=== PATIENT | female | born 1935 | race Caucasian/White ===

== ENCOUNTER 2019-08-15 07:39 | Outpatient (CLI) | payer MEDICARE, OTHER, SELFPAY ==
--- NOTE | 2019-08-15 08:18 | CT_ITS ---
WS: [id number] CT CHEST WITH INTRAVENOUS CONTRAST HISTORY: F/U PULMONARY NODULES TECHNIQUE: Contiguous 5 mm axial imaging performed on the thorax. Coronal and sagittal reformats are submitted. All CT scans at [facility] use at least one of these dose optimization techniq ues: automated exposure control; mA and/or kV adjustment per patient size (includes targeted exams wh ere dose is matched to clinical indication); or iterative reconstruction. CONTRAST: Visipaque 320; 75 mL IV. DLP: 476.15 mGycm COMPARISON: 08/14/2018, 12/09/2017 and 11/28/2016. Lungs and central airway: Mild pulmonary hyperexpansion. Benign granuloma RIGHT upper lobe. 3 mm stab le nodule is noncalcified LEFT lower lobe, image 29 of series 3. Mild interstitial thickening in the periphery of the LEFT lower lobe. Small stable nodules along the RIGHT diaphragmatic surface. No new pulmonary nodules or pneumonia. Pleura: Mild nodularity is stable along the RIGHT diaphragmatic surface. Heart and pericardium: Mild increased pericardial fat. Mediastinum and wu: Small stable benign appearing mediastinal and hilar lymph nodes. Vessels: Atherosclerosis of aorta. No aneurysm. Moderate atherosclerosis in the [place] coronary arter ies. Pulmonary artery size is normal. Chest wall and lower neck: No soft tissue masses. Upper abdomen: Small hiatal hernia. Osseous structures: Mild increase in thoracic kyphosis. Prior vertebroplasty at L1. There is diffuse osteopenia. Mild anterior wedging of T11. CT/CT chest w con* [id number] IMPRESSION: 1. Long-term stability of chronic emphysema and LEFT lower lobe pulmonary nodu les. Long-term stability of the nodules along the RIGHT diaphragmatic surface. No additional follow-up necessary. 2. Atherosclerosis aorta 3. Small hiatal hernia. 4. Moderate coronary artery atherosclerosis.
[2019-08-15] MEDS: iodixanol 320 mg/mL 100mL Btl IV (08:44)
== END 2019-08-15 07:40 | disposition home or self-care (01) ==
LOC: RADWPI 07:45
PROVIDERS: Family Provider Physician Assistant; PCP Physician Assistant; Visit Provider Physician Assistant
DX: R91.8 Other nonspecific abnormal finding of lung field (principal); J43.9 Emphysema, unspecified; I70.0 Atherosclerosis of aorta; K44.9 Diaphragmatic hernia without obstruction or gangrene; I25.10 Atherosclerotic heart disease of native coronary artery without angina pectoris
CPT/HCPCS: 71260; Q9967

== ENCOUNTER 2024-04-02 09:48 | Inpatient (IN) | payer MEDICARE, OTHER, SELFPAY ==
[2024-04-02] VITALS (19 sets, daily range): BP systolic 102–135; BP diastolic 52–78; PULSE 90–120; RESP 16–22; TEMP 36.2–37.8; O2SAT 91–100; BMI 20.1
--- NOTE | 2024-04-02 | SC_ITS ---
WS: [id number] C-ARM RADIOGRAPHS RIGHT FEMUR; 6 IMAGES HISTORY: RT TROCH NAIL COMPARISON: None available. Lung intramedullary femoral ney has been placed through the mid femoral diaphyseal fracture which has been reduced and now in good position and alignment. Satisfactory placement of the proximal and dist al locking screws. SC/C-arm FL for CVA [id number] IMPRESSION: Status post ORIF RIGHT femoral diaphyseal fracture now in excellent position an d alignment compared to the preoperative exam.
--- NOTE | 2024-04-02 09:55 | XRR_ITS ---
PROCEDURE INFORMATION: Exam: XR Right Knee Exam date and time: 04/02/2024 10:22 AM Age: 88 years old Clinical indication: Injury or trauma; Fall; Blunt trauma; Knee; Right; Additional info: Fall/trauma TECHNIQUE: Imaging protocol: Radiologic exam of the right knee. Views: 3 views. COMPARISON: CR XR femur RT min 2V* [id number] 04/02/2024 10:18 AM FINDINGS: Bones/joints: Again noted is an angulated and displaced fracture of the mid shaft of the right femur. There is normal anatomic alignment of the right knee. No evidence of a right knee fracture. The lateral view submitted is suboptimal for evaluating for a right knee effusion. Soft tissues: Normal. XR/XR knee RT 3V* [id number] IMPRESSION: 1. Intact right knee. 2. Angulated and displaced fracture mid shaft right femur.
--- NOTE | 2024-04-02 09:55 | XRR_ITS ---
PROCEDURE INFORMATION: Exam: XR Right Hip Exam date and time: 04/02/2024 10:14 AM Age: 88 years old Clinical indication: Injury or trauma; Fall; Blunt trauma (contusions or hematomas); Right; Hip; Additional info: Fall/trauma TECHNIQUE: Imaging protocol: Radiologic exam of the right hip. Views: 1 view hip with pelvis when performed. COMPARISON: No relevant prior studies available. FINDINGS: Bones/joints: There is normal anatomic alignment of the right hip. No evidence of a fracture or destructive bone lesion. Minor osteoarthritic changes of the right hip. The iliac bones and pubic rami appear intact. The sacrum appears intact. There are chronic degenerative changes of the lower lumbar spine. Soft tissues: Unremarkable. XR/XR hip RT 2-3V wo/w pel* [id number] IMPRESSION: Minor osteoarthritic changes of the right hip, otherwise no evidence of a right hip fracture.
--- NOTE | 2024-04-02 09:55 | XRR_ITS ---
PROCEDURE INFORMATION: Exam: XR Chest Exam date and time: 04/02/2024 10:13 AM Age: 88 years old Clinical indication: Injury or trauma; Fall; Blunt trauma (contusions or hematomas); Additional info: Fall/admit TECHNIQUE: Imaging protocol: Radiologic exam of the chest. Views: 1 view. COMPARISON: CT chest w con* [id number] 08/15/2019 8:35 AM FINDINGS: Lungs: The chest is hypoventilatory. No acute infiltrates identified. Subtle cephalization of pulmonary blood flow suggesting a component of pulmonary venous hypertension. No pulmonary edema at this time. Pleural spaces: Unremarkable. No pleural effusion. No pneumothorax. Heart/Mediastinum: Mild stable cardiomegaly. Bones/joints: Stable appearing L1 vertebroplasty. XR/XR chest 1V portable [id number] IMPRESSION: Subtle pulmonary venous hypertension without pulmonary edema and mild stable cardiomegaly.
--- NOTE | 2024-04-02 09:55 | XRR_ITS ---
PROCEDURE INFORMATION: Exam: XR Right Femur Exam date and time: 04/02/2024 10:18 AM Age: 88 years old Clinical indication: Injury or trauma; Fall; Blunt trauma; Thigh or upper leg; Right; Additional info: Fall/deformity TECHNIQUE: Imaging protocol: Radiologic exam of the right femur. Views: 2 views. COMPARISON: No relevant prior studies available. FINDINGS: Bones/joints: There is an oblique fracture through the mid shaft of the right femur. There is approximately 4 cm of bone override at the fracture site and posterolateral angulation of the distal fracture fragment relative to the proximal fracture fragment. The right hip and right-sided pubic rami are intact. Soft tissues: No radiopaque foreign body or gas in the soft tissues. XR/XR femur RT min 2V* [id number] IMPRESSION: Displaced fracture mid shaft right femur.
--- NOTE | 2024-04-02 09:55 | W.ED.LOWEXIN ---
Documented by User: BOBBY Hart 04/02/24 13:55 HPI - Extremity Injury (Lower) General: Chief Complaint: Extremity Injury, Lower Stated Complaint: fall, right leg pain Time Seen by Provider: 04/02/24 09:50 Source: patient and EMS Mode of arrival: EMS Limitations: no limitations History of Present Illness: Patient is a very nice 88-year-old female presents to ED today via EMS for evaluation of a right lower leg injury/obvious fracture. Patient states she was standing in her yard this morning feeding the birds and squirrels when she believes she slipped on the wet grass. EMS reports obvious deformity to her right femur upon arrival. They were able to get her up and splinted. She denies striking her head or LOC. She is not complaining of any neck or back pain. Her only pain at this time is her right femur. Patient is not on anticoagulation. She reports PMH of asthma and hypertension. She was given 100mcg fentanyl in route. MD complaint: thigh injury Onset (ago): hour(s) Injury: Right: thigh Place: home Severity: severe Relieving factors: immobilization Exacerbating factors: movement and palpation Context: fall Associated symptoms: Reports inability to bear weight Other symptoms: none Related Data Home Medications Medication Instructions Recorded Confirmed alendronate 70 mg tablet 70 mg PO Q7D 04/02/24 04/02/24 amlodipine 2.5 mg tablet 2.5 mg PO DAILY 04/02/24 04/02/24 atorvastatin 20 mg tablet 20 mg PO DAILY 04/02/24 04/02/24 ipratropium 20 mcg-albuterol 100 1 puff inhalation DAILY 04/02/24 04/02/24 mcg/actuation mist for inhalation (Combivent Respimat) lisinopril 5 mg tablet 5 mg PO DAILY 04/02/24 04/02/24 metformin 500 mg tablet 500 mg PO DAILY 04/02/24 04/02/24 Allergies Allergy/AdvReac Type Severity Reaction Status Date / Time codeine Allergy Unknown Verified 04/02/24 10:03 Review of Systems Card: Denies: chest pain, palpitations, irregular heart rhythm, edema, lightheadedness, syncope or pre-syncope Resp: Denies: dyspnea GI: Denies: nausea or vomiting Musc: Reports: extremity pain (R femur) and limited range of motion; Denies: neck pain, back pain, joint swelling, joint redness or joint warmth Neuro: Denies: headache(s), numbness in extremities, weakness in extremities or sensory changes PFSH ED PFSH: Medical History (Updated 04/02/24 @ 12:23 by Sam Strickland DO) Osteoporosis Surgical History (Updated 04/02/24 @ 11:04 by Abel Karimi MD) History of kyphoplasty History of hysterectomy Family History (Updated 04/02/24 @ 11:04 by Abel Karimi MD) Other CAD (coronary artery disease) Social History (Updated 04/02/24 @ 11:04 by Abel Karimi MD) Smoking and tobacco/nicotine status: former use of tobacco/nicotine Alcohol intake: never Physical Exam Const: COMMON NORMALS: no acute distress, patient oriented x3, no limitations and alert GENERAL APPEARANCE: cooperative NUTRITIONAL APPEARANCE: thin ORIENTATION/CONSCIOUSNESS: Yes awake, Yes oriented to person, Yes oriented to place and Yes oriented to time HENMT: COMMON NORMALS: normocephalic and atraumatic HEAD & SCALP: normal to inspection, normocephalic and atraumatic Neck/C-Spine: COMMON NORMALS: full ROM GENERAL: Yes normal visual inspection CERVICAL SPINE: Yes cervical ROM normal, No pain with cervical ROM and No Cervical spine tenderness Chest: COMMONS NORMALS: normal inspection of the chest and normal palpation of entire chest wall Resp: COMMON NORMALS: normal respiratory effort and clear to auscultation bilaterally AUSCULTATION: clear to auscultation bilaterally Cardio: COMMON NORMALS: regular rhythm RATE: tachycardic RHYTHM: regular rhythm GI: COMMON NORMALS: Normal to inspection, nondistended, normoactive bowel sounds present, Soft to palpation and non-tender PALPATION: Yes Soft to palpation : COMMON NORMALS: Yes no CVA tenderness BLADDER/KIDNEY EXAM: Yes no CVA tenderness Back/Pelvis: COMMON NORMALS: no CVA tenderness, thoracic and lumbar spine normal to inspection and no thoracic nor lumbar tenderness Extremity: COMMON NORMALS: no clubbing, cyanosis or edema, no calf tenderness and no pedal edema GENERAL: Yes normal exam except as noted RIGHT LOWER EXTREMITY: Yes upper leg (obvious femoral fx with skin tenting; extremity splinted) OTHER: bilateral LEs are cool to the touch; EMS was able to palpate and nikole DP pulse-pulse confirmed with doppler here Neuro: COMMON NORMALS: patient oriented x3, moves all extremities, no focal motor deficits and no sensory deficits noted SENSORIUM/ORIENTATION: Yes alert, Yes oriented to person, Yes oriented to place and Yes oriented to time GAIT: Yes Unable to assess gait Skin: COMMON NORMALS: no rashes or lesions noted GENERAL SKIN EXAM: no rashes or lesions noted TRAUMA: no lacerations or abrasions Course Vital Signs: Vital signs: Vital Signs Temperature 97.4 F L 04/02/24 09:49 Pulse Rate 90 04/02/24 12:26 Respiratory Rate 16 04/02/24 11:11 Blood Pressure 102/65 04/02/24 12:26 Pulse Oximetry 100 04/02/24 12:26 Oxygen Delivery Me thod Room Air 04/02/24 09:49 MDM - Extremity Injury (Lower) Medical Decision Making Care transferred to Dr. Strickland as she has obvious femur deformity and will be admitted with plan for OR. ES Lab Data 04/02/24 11:43 04/02/24 11:43 Radiology Impressions Chest X-Ray 04/02/24 09:55 IMPRESSION: Subtle pulmonary venous hypertension without pulmonary edema and mild stable cardiomegaly. Femur X-Ray 04/02/24 09:55 IMPRESSION: Displaced fracture mid shaft right femur. 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 Knee X-Ray 04/02/24 09:55 IMPRESSION: 1. Intact right knee. 2. Angulated and displaced fracture mid shaft right femur. Tibia/Fibula X-Ray 04/02/24 10:22 IMPRESSION: 1. Intact right tibia and fibula with normal alignment at the knee and ankle. 2. Please reference separately dictated radiograph of the femur report same day. Femur CT 04/02/24 10:50 IMPRESSION: 1. Intramuscular hemorrhage at the site of the fracture predominantly involving the vastus lateralis and vastus intermedius muscles. 2. There is additional subcutaneous hemorrhage but not well formed. 3. Acute femoral diaphyseal fracture with overlapping fracture fragments by 3.5 cm. Laboratory Results WBC 17.04 10^3/uL (3.29-11.43) H 04/02/24 11:43 RBC 4.12 10^6/uL (3.85-5.65) 04/02/24 11:43 Hgb 12.20 g/dL (11.27-16.99) 04/02/24 11:43 Hct 37.2 % (36-47) 04/02/24 11:43 MCV 90.3 fl (85-98) 04/02/24 11:43 MCH 29.6 pg (27-33) 04/02/24 11:43 MCHC 32.8 g/dL (30-55) 04/02/24 11:43 RDW 13.1 % (12.1-15.1) 04/02/24 11:43 Plt Count 221 10^3/cmm (157-399) 04/02/24 11:43 MPV 12.5 fL (7.4-10.4) H 04/02/24 11:43 Neut % (Auto) 84.9 % 04/02/24 11:43 Lymph % (Auto) 7.2 % 04/02/24 11:43 [place] % (Auto) 7.1 % 04/02/24 11:43 Eos % (Auto) 0.1 % 04/02/24 11:43 Baso % (Auto) 0.3 % 04/02/24 11:43 Neut # (Auto) 14.48 10^3/uL (1.8-7.7) H 04/02/24 11:43 Lymph # (Auto) 1.2 10^3/uL (0.8-4.8) 04/02/24 11:43 [place] # (Auto) 1.2 10^3/uL (0.2-0.9) H 04/02/24 11:43 Eos # (Auto) 0.0 10^3/uL (0.0-0.8) 04/02/24 11:43 Baso # (Auto) 0.1 10^3/uL (0.0-0.1) 04/02/24 11:43 Nucleated RBC % (auto) 0 % 04/02/24 11:43 Nucleated RBCs # 0.0 /100WBC 04/02/24 11:43 Sodium 137 mmol/L (136-145) 04/02/24 11:43 Potassium 3.9 mmol/L (3.5-5.1) 04/02/24 11:43 Chloride 100 mmol/L (98-107) 04/02/24 11:43 Carbon Dioxide 24 mmol/L (22-29) 04/02/24 11:43 Anion Gap 16.9 (5-19) 04/02/24 11:43 BUN 10 mg/dL (8-23) 04/02/24 11:43 Creatinine 0.7 mg/dL (0.5-0.9) 04/02/24 11:43 GFR Calculation Not Reportable 04/02/24 11:43 Glucose 135 mg/dL (65-115) H 04/02/24 11:43 Calculated Osmolality 285 mOsm/kg (285-295) 04/02/24 11:43 Calcium 8.9 mg/dL (8.5-10.5) 04/02/24 11:43 Total Bilirubin 0.6 mg/dL (0.15-1.2) 04/02/24 11:43 AST 30 U/L (0-32) 04/02/24 11:43 ALT 18 U/L (0-33) 04/02/24 11:43 Alkaline Phosphatase 101 U/L (35-105) 04/02/24 11:43 Total Protein 7.5 g/dL (6.6-8.7) 04/02/24 11:43 Albumin 4.0 g/dL (3.5-5.2) 04/02/24 11:43 Globulin 3.5 g/dL (1.3-4.6) 04/02/24 11:43 Urine Color Yellow (Yellow) 04/02/24 10:38 Urine Appearance Clear (CLEAR) 04/02/24 10:38 Urine pH 5.5 (5-7) 04/02/24 10:38 Ur Specific Orange 1.014 (1.005-1.030) 04/02/24 10:38 Urine Protein Trace (Negative) A 04/02/24 10:38 Urine Glucose (UA) Negative (Normal) 04/02/24 10:38 Urine Ketones Negative (Negative) 04/02/24 10:38 Urine Blood Negative (Negative) 04/02/24 10:38 Urine Nitrate Negative (Negative) 04/02/24 10:38 Urine Bilirubin Negative (Negative) 04/02/24 10:38 Urine Urobilinogen 0.2 mg/dL (Negative) 04/02/24 10:38 Ur Leukocyte Esterase Negative (Negative) 04/02/24 10:38 Urine RBC 0-2 /hpf (0-2) 04/02/24 10:38 Urine WBC 0-5 /hpf (0-5) 04/02/24 10:38 Ur Squamous Epith Cells 0-5 /hpf (0-5) 04/02/24 10:38 Amorphous Sediment Not Reportable 04/02/24 10:38 Urine Bacteria None seen /hpf (NONE) 04/02/24 10:38 Hyaline Casts 2.05 /lpf 04/02/24 10:38 All radiology interpretation(s) finalized by discharge Discharge Plan Discharge Patient Disposition: Admitted As Inpatient Admit Provider: Abel Karimi Clinical Impression: Fracture of distal end of femur, Hypertension, Asthma, Right femoral shaft fracture Condition: Stable Coding Level of Care Code ED Heavy Equipment Operator/Paver for Chg Fwd Documented by User: Sam Strickland DO 04/02/24 12:23 HPI - Extremity Injury (Lower) General: Chief Complaint: Extremity Injury, Lower Stated Complaint: fall, right leg pain Time Seen by Provider: 04/02/24 09:50 Related Data Home Medications Medication Instructions Recorded Confirmed alendronate 70 mg tablet 70 mg PO Q7D 04/02/24 04/02/24 amlodipine 2.5 mg tablet 2.5 mg PO DAILY 04/02/24 04/02/24 atorvastatin 20 mg tablet 20 mg PO DAILY 04/02/24 04/02/24 ipratropium 20 mcg-albuterol 100 1 puff inhalation DAILY 04/02/24 04/02/24 mcg/actuation mist for inhalation (Combivent Respimat) lisinopril 5 mg tablet 5 mg PO DAILY 04/02/24 04/02/24 metformin 500 mg tablet 500 mg PO DAILY 04/02/24 04/02/24 Allergies Allergy/AdvReac Type Severity Reaction Status Date / Time codeine Allergy Unknown Verified 04/02/24 10:03 PFSH ED PFSH: Medical History (Updated 04/02/24 @ 12:23 by Sam Strickland DO) Osteoporosis Surgical History (Updated 04/02/24 @ 11:04 by Abel Karimi MD) History of kyphoplasty History of hysterectomy Family History (Updated 04/02/24 @ 11:04 by Abel Karimi MD) Other CAD (coronary artery disease) Social History (Updated 04/02/24 @ 11:04 by Abel Karimi MD) Smoking and tobacco/nicotine status: former use of tobacco/nicotine Alcohol intake: never Course Vital Signs: Vital signs: Vital Signs Temperature 97.4 F L 04/02/24 09:49 Pulse Rate 90 04/02/24 12:26 Respiratory Rate 16 04/02/24 11:11 Blood Pressure 102/65 04/02/24 12:26 Pulse Oximetry 100 04/02/24 12:26 Oxygen Delivery Me thod Room Air 04/02/24 09:49 MDM - Extremity Injury (Lower) Medical Decision Making Care transferred to Dr. Strickland as she has obvious femur deformity and will be admitted with plan for OR. ES Chart reviewed patient seen and evaluated repeat exam findings unchanged. Does have some tenting of the skin. Increase the traction which did help some with pain relief and decreased skin tenting. Discussed with hospitalist Dr. Dick. He Rech asked for CT to be done CT was done shows intravascular hematoma. After the CT was done Erazo's traction was applied with 20 pounds patient is doing well after this pain is much better controlled there is obviously less deformity than she had previously less skin tenting as well. Patient last ate last evening Dr. Dick is indicated he plans to do an open reduction internal fixation this afternoon on this patient. Medical Records I reviewed the patient's medical records. Lab Data I reviewed the patient's lab results. 04/02/24 11:43 04/02/24 11:43 Radiology Impressions Chest X-Ray 04/02/24 09:55 IMPRESSION: Subtle pulmonary venous hypertension without pulmonary edema and mild stable cardiomegaly. Femur X-Ray 04/02/24 09:55 IMPRESSION: Displaced fracture mid shaft right femur. 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 Knee X-Ray 04/02/24 09:55 IMPRESSION: 1. Intact right knee. 2. Angulated and displaced fracture mid shaft right femur. Tibia/Fibula X-Ray 04/02/24 10:22 IMPRESSION: 1. Intact right tibia and fibula with normal alignment at the knee and ankle. 2. Please reference separately dictated radiograph of the femur report same day. Femur CT 04/02/24 10:50 IMPRESSION: 1. Intramuscular hemorrhage at the site of the fracture predominantly involving the vastus lateralis and vastus intermedius muscles. 2. There is additional subcutaneous hemorrhage but not well formed. 3. Acute femoral diaphyseal fracture with overlapping fracture fragments by 3.5 cm. Laboratory Results WBC 17.04 10^3/uL (3.29-11.43) H 04/02/24 11:43 RBC 4.12 10^6/uL (3.85-5.65) 04/02/24 11:43 Hgb 12.20 g/dL (11.27-16.99) 04/02/24 11:43 Hct 37.2 % (36-47) 04/02/24 11:43 MCV 90.3 fl (85-98) 04/02/24 11:43 MCH 29.6 pg (27-33) 04/02/24 11:43 MCHC 32.8 g/dL (30-55) 04/02/24 11:43 RDW 13.1 % (12.1-15.1) 04/02/24 11:43 Plt Count 221 10^3/cmm (157-399) 04/02/24 11:43 MPV 12.5 fL (7.4-10.4) H 04/02/24 11:43 Neut % (Auto) 84.9 % 04/02/24 11:43 Lymph % (Auto) 7.2 % 04/02/24 11:43 [place] % (Auto) 7.1 % 04/02/24 11:43 Eos % (Auto) 0.1 % 04/02/24 11:43 Baso % (Auto) 0.3 % 04/02/24 11:43 Neut # (Auto) 14.48 10^3/uL (1.8-7.7) H 04/02/24 11:43 Lymph # (Auto) 1.2 10^3/uL (0.8-4.8) 04/02/24 11:43 [place] # (Auto) 1.2 10^3/uL (0.2-0.9) H 04/02/24 11:43 Eos # (Auto) 0.0 10^3/uL (0.0-0.8) 04/02/24 11:43 Baso # (Auto) 0.1 10^3/uL (0.0-0.1) 04/02/24 11:43 Nucleated RBC % (auto) 0 % 04/02/24 11:43 Nucleated RBCs # 0.0 /100WBC 04/02/24 11:43 Sodium 137 mmol/L (136-145) 04/02/24 11:43 Potassium 3.9 mmol/L (3.5-5.1) 04/02/24 11:43 Chloride 100 mmol/L (98-107) 04/02/24 11:43 Carbon Dioxide 24 mmol/L (22-29) 04/02/24 11:43 Anion Gap 16.9 (5-19) 04/02/24 11:43 BUN 10 mg/dL (8-23) 04/02/24 11:43 Creatinine 0.7 mg/dL (0.5-0.9) 04/02/24 11:43 GFR Calculation Not Reportable 04/02/24 11:43 Glucose 135 mg/dL (65-115) H 04/02/24 11:43 Calculated Osmolality 285 mOsm/kg (285-295) 04/02/24 11:43 Calcium 8.9 mg/dL (8.5-10.5) 04/02/24 11:43 Total Bilirubin 0.6 mg/dL (0.15-1.2) 04/02/24 11:43 AST 30 U/L (0-32) 04/02/24 11:43 ALT 18 U/L (0-33) 04/02/24 11:43 Alkaline Phosphatase 101 U/L (35-105) 04/02/24 11:43 Total Protein 7.5 g/dL (6.6-8.7) 04/02/24 11:43 Albumin 4.0 g/dL (3.5-5.2) 04/02/24 11:43 Globulin 3.5 g/dL (1.3-4.6) 04/02/24 11:43 Urine Color Yellow (Yellow) 04/02/24 10:38 Urine Appearance Clear (CLEAR) 04/02/24 10:38 Urine pH 5.5 (5-7) 04/02/24 10:38 Ur Specific Orange 1.014 (1.005-1.030) 04/02/24 10:38 Urine Protein Trace (Negative) A 04/02/24 10:38 Urine Glucose (UA) Negative (Normal) 04/02/24 10:38 Urine Ketones Negative (Negative) 04/02/24 10:38 Urine Blood Negative (Negative) 04/02/24 10:38 Urine Nitrate Negative (Negative) 04/02/24 10:38 Urine Bilirubin Negative (Negative) 04/02/24 10:38 Urine Urobilinogen 0.2 mg/dL (Negative) 04/02/24 10:38 Ur Leukocyte Esterase Negative (Negative) 04/02/24 10:38 Urine RBC 0-2 /hpf (0-2) 04/02/24 10:38 Urine WBC 0-5 /hpf (0-5) 04/02/24 10:38 Ur Squamous Epith Cells 0-5 /hpf (0-5) 04/02/24 10:38 Amorphous Sediment Not Reportable 04/02/24 10:38 Urine Bacteria None seen /hpf (NONE) 04/02/24 10:38 Hyaline Casts 2.05 /lpf 04/02/24 10:38 Discharge Plan Discharge Patient Disposition: Admitted As Inpatient Admit Provider: Abel Karimi Clinical Impression: Fracture of distal end of femur, Hypertension, Asthma, Right femoral shaft fracture Condition: Stable Coding Level of Care Code ED Heavy Equipment Operator/Paver for Fransisca Bowman
[2024-04-02] MEDS: morphine 4 mg/mL SDV 1 mL IVP ×2 (10:07→11:11)
--- NOTE | 2024-04-02 10:11 | PC.PHAR ---
[facility] confirms that these are all the medications they send to her at this time
--- NOTE | 2024-04-02 10:22 | XRR_ITS ---
PROCEDURE INFORMATION: Exam: XR Right Tibia and Fibula Exam date and time: 04/02/2024 10:24 AM Age: 88 years old Clinical indication: Injury or trauma; Other: Not specified; Blunt trauma; Lower leg; Right TECHNIQUE: Imaging protocol: Radiologic exam of the right tibia and fibula. Views: 2 views. COMPARISON: CR XR knee RT 3V* [id number] 04/02/2024 10:22 AM FINDINGS: Bones/joints: The right tibia and fibula are intact. Normal alignment of the right tibia and fibula at the knee and ankle. No evidence of a right tib-fib fracture. Soft tissues: No radiopaque foreign body or gas in the soft tissues. Vasculature: Mural calcifications of the tibial arteries. XR/XR tibia fibula RT 2V [id number] IMPRESSION: 1. Intact right tibia and fibula with normal alignment at the knee and ankle. 2. Please reference separately dictated radiograph of the femur report same day.
--- NOTE | 2024-04-02 10:30 | ECG_ITS ---
[facility] Date: 2024-04-02 Pat Name: Ally Underwood Department: Room: Gender: Female Angle Bender: : 1935 Requested By: Kathleen Velez Order Number: [id number] Aurelia MD: Chris Lennon M.D. Measurements Intervals Bunn Rate: 115 P: 68 NE: 153 QRS: 15 QRSD: 134 T: 53 QT: 341 QTc: 473 Interpretive Statements SINUS TACHYCARDIA WITH OCCASIONAL SUPRAVENTRICULAR PREMATURE COMPLEXES RIGHT BUNDLE BRANCH BLOCK [120+ ms QRS DURATION, UPRIGHT V1, 40+ ms S IN I/aVL/V4/V5/V6] Compared to ECG 07/25/2016 10:02:29 Right bundle-branch block now present Sinus rhythm no longer present Electronically Signed On 04-02-2024 20:27:53 POKER ROOM MANAGER by Chris Lennon M.D. [email or web address]
--- NOTE | 2024-04-02 10:50 | CT_ITS ---
WS: [id number] CT RIGHT FEMUR, NONCONTRAST HISTORY: Soft tissue mass post fracture. Technique: All CT scans at [facility] use at least one of these dose optimization techniques: automated exposure control; mA and/or kV adjustment per patient size (includes targeted exams where dose is matched to clinical indication); or iterative reconstruction. DLP: 600.51 mGy.cm COMPARISON: Radiograph 04/02/2024 Acute displaced fracture with overlapping fracture fragments in the mid to distal femoral diaphysis. Distal component of the fracture is anteriorly displaced and overlaps the proximal fragment by 3.5 cm . There is a large amount of soft tissue edema. There is hemorrhage in the vastus lateralis and vastu s intermedius muscles. There is a additional soft tissue stranding and subcutaneous level. Intramuscu lar hemorrhage extends over a length of 12.3 cm. There is no large well formed component of hemorrhag e in external to the soft tissues. Heavily calcified RIGHT femoral artery. Bones are osteopenic. Degenerative joint space narrowing at the hip. No fracture identified. No knee fracture. The distal fracture component appears internally rotated. CT/CT femur RT wo con* [id number] IMPRESSION: 1. Intramuscular hemorrhage at the site of the fracture predominantly involvin g the vastus lateralis and vastus intermedius muscles. 2. There is additional subcutaneous hemorrhage but not well formed. 3. Acute femoral diaphyseal fracture with overlapping fracture fragments by 3. 5 cm.
--- NOTE | 2024-04-02 10:59 | USCV_ITS ---
Kj Ally Age: 88 Gender: F : 1935 Exam Date: 04/02/2024 21:39 Ordering Phys: Abel Karimi MD Technologist: KISHAN Exam Location: [facility] [place] Indication: systolic murmur, SOB post-op total hip BP: 111 / 73 HR: 101 Rhythm: Sinus Technical Quality: Adequate MEASUREMENTS (Male / Female) Normal Values 2D ECHO LV Diastolic Diameter PLAX 3.1 cm 4.2 - 5.9 / 3.9 - 5.3 cm IVS Diastolic Thickness 1.5 cm 0.6 - 1.0 / 0.6 - 0.9 cm IVS Systolic Thickness 1.9 cm LVPW Diastolic Thickness 1.2 cm 0.6 - 1.0 / 0.6 - 0.9 cm LVPW Systolic Thickness 1.6 cm LVOT Diameter 1.8 cm LV Ejection Fraction 2D Teich 59.3 % LV Ejection Fraction MOD 4C 67.6 % LV Ejection Fraction MOD 2C 55.1 % LV Ejection Fraction 2C AL 56.8 % LA Diameter 3.0 cm Aorta at Sinotubular Diameter 2.8 cm IVC Diameter 1.0 cm M-MODE LA Ao Ratio MM 1.1 AV Cusp Separation MM 0.9 cm DOPPLER AV Peak Velocity 340.0 cm/s LVOT Peak Velocity 131.0 cm/s AV Area Cont Eq vti 1.1 cm squared AV Area Cont Eq pk 1.0 cm squared MV Peak Velocity 142.0 cm/s MV Area PHT 4.3 cm squared Mitral E to A Ratio 0.6 TV Peak Velocity 279.5 cm/s TR Peak Velocity 294.0 cm/s TR Peak Gradient 34.6 mmHg TV Peak E Velocity 96.0 cm/s PV Peak Velocity 114.0 cm/s FINDINGS Left Ventricle Moderate left ventricular hypertrophy. LV ejection fraction around 60%.Grade I/IV diastolic dysfunction (abnormal relaxation filling pattern), normal to mildly elevated filling pressures. Right Ventricle The right ventricle is normal in size and function. Right Atrium The right atrium is normal in size. Left Atrium Mildly increased left atrial size. Mitral Valve Mild mitral valve regurgitation. Aortic Valve Moderate aortic valve stenosis, mean gradient 22 mmHg, LI 1.1 cm squared. Peak velocity of 3.6 m/s with a peak gradient of 52mmHg Tricuspid Valve Trace to mild tricuspid valve regurgitation. Estimated pulmonary artery peak systolic pressure 38 mmHg Pulmonic Valve No gross abnormalities noted Pericardium Normal pericardium without effusion. Aorta Normal ascending aorta dimension. IVC Normal inferior vena cava. CONCLUSIONS Moderate left ventricular hypertrophy. LV ejection fraction around 60%.Grade I/IV diastolic dysfunction (abnormal relaxation filling pattern), normal to mildly elevated filling pressures. Moderate aortic valve stenosis, mean gradient 22 mmHg, LI 1.1 cm squared. Peak velocity of 3.6 m/s with a peak gradient of 52mmHg. Mildly increased left atrial size. Mild mitral valve regurgitation. Trace to mild tricuspid valve regurgitation. Estimated pulmonary artery peak systolic pressure 38 mmHg. There is no pericardial effusion. There are no intracardiac masses. No similar previous studies are available for comparison Dr America Valentin MD [facility] (Electronically Signed) Final Date: 03 April 2024 09:31 S
--- NOTE | 2024-04-02 11:00 | PM.HP ---
Providers/Chief Complaint Admitting Physician: Abel Karimi MD, hospitalist Primary Care Provider: Geetha Antunez Chief Complaint: fall, right leg pain History of Present Illness Ally Underwood is a 88 year old female presenting from home with history of a slip/fall while out feeding her chickens some grain. She reports she injured her right leg. She denies hitting her head, or any other injuries. She denies a syncopal episode. She reports no recent falls, no chest discomfort with exertion, no dizziness with exertion. She has not been ill lately. She has had surgeries in the past and has had no issues with anesthesia. She denies being on any blood thinner or having any bleeding disorder. Review of Systems General: Reports: 10 or more systems reviewed and unremarkable except in HPI and below Card: Denies: chest pain Resp: Denies: dyspnea Medications/Allergies Home Medications Medication Instructions Recorded Confirmed Last Taken Type alendronate 70 mg tablet 70 mg PO Q7D 04/02/24 04/02/24 Unknown History amlodipine 2.5 mg tablet 2.5 mg PO DAILY 04/02/24 04/02/24 Unknown History atorvastatin 20 mg tablet 20 mg PO DAILY 04/02/24 04/02/24 Unknown History ipratropium 20 mcg-albuterol 100 1 puff inhalation DAILY 04/02/24 04/02/24 Unknown History mcg/actuation mist for inhalation (Combivent Respimat) lisinopril 5 mg tablet 5 mg PO DAILY 04/02/24 04/02/24 Unknown History metformin 500 mg tablet 500 mg PO DAILY 04/02/24 04/02/24 Unknown History Allergies Allergy/AdvReac Type Severity Reaction Status Date / Time codeine Allergy Unknown Verified 04/02/24 10:03 PFSH Acute PFSH: Medical History (Updated 04/02/24 @ 11:14 by Abel Karimi MD) Osteoporosis Surgical History (Updated 04/02/24 @ 11:04 by Abel Karimi MD) History of kyphoplasty History of hysterectomy Family History (Updated 04/02/24 @ 11:04 by Abel Karimi MD) Other CAD (coronary artery disease) Social History (Updated 04/02/24 @ 11:04 by Abel Karimi MD) Smoking and tobacco/nicotine status: former use of tobacco/nicotine Alcohol intake: never Vitals/I&O/Wt Last Vital Signs Temp 97.4 F L 04/02/24 09:49 Pulse 120 H 04/02/24 09:49 Resp 20 H 04/02/24 10:07 BP 130/55 04/02/24 09:49 Pulse Ox 94 04/02/24 10:07 O2 Del Method Room Air 04/02/24 09:49 Weight last 48 hrs Weight 44.906 kg Physical Exam Narrative: General Exam is a white female, reporting some pain but improving, who is alert, oriented. Son is at bedside. HEENT: Atraumatic normocephalic. Oropharynx clear Neck is supple no lymphadenopathy thyromegaly Cardiovascular regular rhythm, tachycardic, 3/6 systolic murmur heard best in the aortic area Lungs clear no wheezing or crackles Abdomen is soft nontender positive bowel sounds. No obvious organomegaly exams deferred Extremities no cyanosis clubbing. Distal pulses intact. No edema. Deformity right lower extremity noted. Skin no rash Neuro no obvious focal deficits Data Other Labs: CBC reviewed. White blood cell count 17.0, likely demargination LFTs normal Urinalysis 0-2 whites, 0-2 reds Other data: X-rays reviewed. No tibia or fibula fracture. No obvious joint fracture into the knee Hip and pelvis demonstrate no hip fracture Femur x-ray demonstrates displaced midshaft right femur fracture, appears spiral Chest x-ray by my read demonstrates atherosclerosis, no infiltrate, likely COPD, cardiomegaly Urinalysis pending EKG demonstrates sinus tachycardia, borderline left axis deviation, right bundle branch block. A&P Assessment and plan (1) Right femoral shaft fracture: Patient presents with femur fracture, following mechanical fall Traction is going to be initiated Orthopedic consultation for repair, for my understanding this may be done today Keep n.p.o. Pain control with IV morphine, nausea control (2) Heart murmur: Patient with heart murmur suggestive of aortic stenosis She denies any chest discomfort, no dizziness or syncope in the last 3 to 4 months Will obtain an ultrasound This should not delay orthopedic surgery. She reports history of good exercise capacity, without chest discomfort or other symptoms. (3) Hypertension: Hold blood pressure medication at this time (4) Diabetes mellitus: When starting diet, will need consistent carb Sliding scale insulin (5) Asthma: DuoNeb as needed Plan Other medical problems as outlined in past medical history Full code SCDs for DVT prophylaxis Will initiate pharmacologic DVT prophylaxis following surgery, contraindicated currently as surgery is imminent. Attestations Medical Necessity Statement*: Will need greater than 2 midnight stay for evaluation and treatment of femur fracture requiring surgical intervention. Diagnoses Right femoral shaft fracture S72.301A Heart murmur R01.1 Hypertension I10 Diabetes mellitus E11.9 Asthma J45.909 Time Spent (min) 53
--- NOTE | 2024-04-02 11:05 | P.CONIM_ITS ---
Documented by User: BOBBY Lynn 04/02/24 15:03 Providers/Reason For Consult 2 Consulting Physician/Specialty*: Dr. Kapil DO/orthopedic surgeon Reason for Consult*: Displaced right femur fracture Requesting Physician: Dr. Strickland/emergency department Primary Care Provider: Geetha Antunez History of Present Illness History of Present Illness Ally Underwood is a 88 year old female that has a right femur fracture. Patient was outside in her yard feeding some animals when she slipped and fell. She denies striking her head or LOC. She is not complaining of any neck or back pain. Her only pain at this time is her right femur. Patient is not on any blood thinners. Patient lives with her son but is independent and ambulates without any assistive device. She is very active. Review of Systems 2 Const: Denies: fever(s) or chills ENMT: Denies: nasal discharge Card: Denies: chest pain Resp: Denies: dyspnea, productive cough or non-productive cough GI: Denies: abdominal pain, nausea, vomiting, diarrhea or constipation : Denies: dysuria Musc: Reports: extremity pain (Right leg) and limited range of motion (Right leg) Skin/Breast: Denies: rash Medications/Allergies Home Medications Medication Instructions Recorded Confirmed Last Taken Type alendronate 70 mg tablet 70 mg PO Q7D 04/02/24 04/02/24 Unknown History amlodipine 2.5 mg tablet 2.5 mg PO DAILY 04/02/24 04/02/24 Unknown History atorvastatin 20 mg tablet 20 mg PO DAILY 04/02/24 04/02/24 Unknown History ipratropium 20 mcg-albuterol 100 1 puff inhalation DAILY 04/02/24 04/02/24 Unknown History mcg/actuation mist for inhalation (Combivent Respimat) lisinopril 5 mg tablet 5 mg PO DAILY 04/02/24 04/02/24 Unknown History metformin 500 mg tablet 500 mg PO DAILY 04/02/24 04/02/24 Unknown History Allergies Allergy/AdvReac Type Severity Reaction Status Date / Time codeine Allergy Unknown Verified 04/02/24 10:03 PFSH Acute 2 PFSH: Medical History (Updated 04/02/24 @ 12:23 by Sam Strickland DO) Osteoporosis Surgical History (Updated 04/02/24 @ 11:04 by Abel Karimi MD) History of kyphoplasty History of hysterectomy Family History (Updated 04/02/24 @ 11:04 by Abel Karimi MD) Other CAD (coronary artery disease) Social History (Updated 04/02/24 @ 11:04 by Abel Karimi MD) Smoking and tobacco/nicotine status: former use of tobacco/nicotine Alcohol intake: never Vitals/I&O/Wt Last Vital Signs Temp 97.4 F L 04/02/24 09:49 Pulse 120 H 04/02/24 09:49 Resp 20 H 04/02/24 10:07 BP 130/55 04/02/24 09:49 Pulse Ox 94 04/02/24 10:07 O2 Del Method Room Air 04/02/24 09:49 Weight last 48 hrs Weight 99 lb Physical Exam 2 Const: COMMON NORMALS: no acute distress and alert Resp: COMMON NORMALS: normal respiratory effort and No retractions Cardio: COMMON NORMALS: Peripheral pulses 2+ throughout PERIPHERAL PULSES: Peripheral pulses 2+ throughout Extremity: NARRATIVE EXTREMITY EXAM: (Right) lower extremity-leg is shortene d and internally rotated. Positive logroll test. Tenderness to palpation over midshaft femur. Some ecchymosis and swelling noted in thigh. Compartments are soft and compressible. Patient can Wiggle toes. Toes are warm and well-perfused. Pedal pulse 1+. Secondary assessment of other extremities. Upper extremities-no visible injuries, abrasions. Full range of motion in shoulders, elbows and wrist. no tenderness to palpation of shoulders or wrist. (Left) lower extremity-no visible injury or trauma seen. Full range of motion in hip. Negative logroll test. Patient able to perform straight leg raise and can dorsiflex plantarflex foot. Pedal pulse 2+ and patient can wiggle toes. Neuro: SENSORIUM/ORIENTATION: Yes alert Skin: GENERAL SKIN EXAM: dry skin Urinary Catheter Management: [place]: Cath Placed During This Visit: yes Urinary Catheter Date of Insertion: 04/02/24 Urinary Catheter Time of Insertion: 10:45 Data 04/02/24 11:43 04/02/24 11:43 Xray Ortho: Radiologist's impression: Femur X-Ray 04/02/24 09:55 IMPRESSION: Displaced fracture mid shaft right femur. Knee X-Ray 04/02/24 09:55 IMPRESSION: 1. Intact right knee. 2. Angulated and displaced fracture mid shaft right femur. A&P Assessment and plan (1) Right femoral shaft fracture: Plan -Imaging and Labs reviewed -Hospitalist on board for medical management. -VTE prophylaxis -Nonweightbearing on right leg -Pain control -N.p.o. -Surgery today for Retrograde Right IM femoral nail fixation Coding Level of Care Code Acute Code for g Fwd Diagnoses Right femoral shaft fracture S72.301A Documented by User: Froylan Dick DO 04/02/24 14:50 Medications/Allergies Home Medications Medication Instructions Recorded Confirmed Last Taken Type alendronate 70 mg tablet 70 mg PO Q7D 04/02/24 04/02/24 Unknown History amlodipine 2.5 mg tablet 2.5 mg PO DAILY 04/02/24 04/02/24 Unknown History atorvastatin 20 mg tablet 20 mg PO DAILY 04/02/24 04/02/24 Unknown History ipratropium 20 mcg-albuterol 100 1 puff inhalation DAILY 04/02/24 04/02/24 Unknown History mcg/actuation mist for inhalation (Combivent Respimat) lisinopril 5 mg tablet 5 mg PO DAILY 04/02/24 04/02/24 Unknown History metformin 500 mg tablet 500 mg PO DAILY 04/02/24 04/02/24 Unknown History Allergies Allergy/AdvReac Type Severity Reaction Status Date / Time codeine Allergy Unknown Verified 04/02/24 10:03 PFSH Acute 2 PFSH: Medical History (Updated 04/02/24 @ 12:23 by Sam Strickland DO) Osteoporosis Surgical History (Updated 04/02/24 @ 11:04 by Abel Karimi MD) History of kyphoplasty History of hysterectomy Family History (Updated 04/02/24 @ 11:04 by Abel Karimi MD) Other CAD (coronary artery disease) Social History (Updated 04/02/24 @ 11:04 by Abel Karimi MD) Smoking and tobacco/nicotine status: former use of tobacco/nicotine Alcohol intake: never Physical Exam 2 Urinary Catheter Management: [place]: Cath Placed During This Visit: yes Data 04/02/24 11:43 04/02/24 11:43 A&P Assessment and plan (1) Right femoral shaft fracture: Coding Level of Care Code Acute Code for Chg Fwd Diagnoses Right femoral shaft fracture S72.301A
[2024-04-02 11:29] LABS: Bilirubin Urine Negative (Negative); Blood Urine Negative (Negative); Glucose Urine UA Negative (Normal); Ketones Urine Negative (Negative); Leukocyte Esterase Urine Negative (Negative); Nitrate Urine Negative (Negative); Protein Urine Trace (Negative); Specific Gravity, Urine 1.014 (1.005-1.030); Urine Appearance Clear (CLEAR); Urine Color Yellow (Yellow); Urobilinogen Urine 0.2 mg/dL (Negative); pH Urine 5.5 (5-7)
[2024-04-02 11:34] LABS: Add Urine Microscopic? YES; Bacteria Urine None Seen /hpf; Hyaline Casts Urine 2.05 /lpf; RBC Urine 0-2 /hpf (0-2); Squamous Epithelial Cell Urine 0-5 /hpf (0-5); WBC Urine 0-5 /hpf (0-5)
[2024-04-02 11:51] LABS: Basophils # 0.1 10^3/uL (0.0-0.1); Basophils % 0.3 %; Eosinophils % 0.1 %; Hematocrit 37.2 % (36-47); Lymphocytes # 1.2 10^3/uL (0.8-4.8); Lymphocytes % 7.2 %; Mean Corpuscular HGB Conc 32.8 g/dL (30-55); Mean Corpuscular Hemoglobin 29.6 pg (27-33); Mean Corpuscular Volume 90.3 fl (85-98); Mean Platelet Volume 12.5 fL (7.4-10.4); Monocytes # 1.2 10^3/uL (0.2-0.9); Monocytes % 7.1 %; Neutrophils # 14.48 10^3/uL (1.8-7.7); Neutrophils % 84.9 %; Nucleated Red Blood Cells % 0 %; Platelet Count 221 10^3/cmm (157-399); Red Blood Count 4.12 10^6/uL (3.85-5.65); Red Cell Distribution Width 13.1 % (12.1-15.1); White Blood Count 17.04 10^3/uL (3.29-11.43)
[2024-04-02 12:08] LABS: Alanine Aminotransferase 18 U/L (0-33); Alkaline Phosphatase 101 U/L (35-105); Anion Gap 16.9 (5-19); Aspartate Amino Transferase 30 U/L (0-32); Blood Urea Nitrogen 10 mg/dL (8-23); Calcium 8.9 mg/dL (8.5-10.5); Carbon Dioxide 24 mmol/L (22-29); Chloride 100 mmol/L (98-107); Globulin 3.5 g/dL (1.3-4.6); Glucose 135 mg/dL (65-115); Osmolality Calculated 285 mOsm/kg (285-295); Potassium 3.9 mmol/L (3.5-5.1); Sodium 137 mmol/L (136-145); Total Bilirubin 0.6 mg/dL (0.15-1.2); Total Protein 7.5 g/dL (6.6-8.7)
--- NOTE | 2024-04-02 13:19 | PC.PT ---
Florencia lozano traction placed in ER by Pablo Brown PT.
[2024-04-02 14:19] LABS: Glucose Point of Care 149 mg/dL (70-110)
--- NOTE | 2024-04-02 14:50 | W.PM.OPSUD ---
Surgery/Procedure H&P Update DATE OF PROCEDURE: April 02, 2024 DATE H&P PERFORMED: 04/02/24 H&P UPDATE INFORMATION: I have reviewed H&P completed within last 30 days, I have examined patient prior to procedure and No changes to prior documentation PREOP DIAGNOSIS: Right distal third femur shaft fracture PRIMARY INDICATION FOR PROCEDURE: Right third distal femur shaft fracture PLANNED PROCEDURE: Operation Date: 04/02/24 17:35 Proposed Procedures p Retrograde IM Nail Femur(Right) - Froylan Dick DO
--- NOTE | 2024-04-02 15:07 | P.ANESASSM_ITS ---
Pre-Anesthetic Assessment Height/Weight: Height 4 ft 9 in Weight 93 lb Temp Pulse Resp BP Pulse Ox O2 Del Method 97.9 F 102 H 17 115/71 91 Room Air 04/02/24 13:08 04/02/24 13:08 04/02/24 13:08 04/02/24 13:08 04/02/24 13:08 04/02/24 13:13 Preop Diagnosis: Right distal third femur shaft fracture Operation Date: 04/02/24 17:35 Proposed Procedures p Retrograde IM Nail Femur(Right) - Froylan Bossier, DO Was Beta Dilia taken within 24 hours: N/A Was Clonidine taken within 24 hours: N/A Social No alcohol and No tobacco Exam alert, oriented x 3, clear to auscultation bilaterally and regular rate & rhythm Airway Submandibular: within normal limits Cervical ROM: within normal limits Mallampati: Class II Dentition: full Anesthetic Plan ASA status: 3 Anesthesia: General Other: No prior issues with anesthesia NPO since this morning, coffee with creamer at 6 AM History of hypertension on lisinopril and amlodipine Type 2 diabetes on metformin Patient has a systolic flow murmur heard on ejection, patient denies any SOB Patient reportedly lives at home alone and was able to perform ADLs EKG showing sinus tachycardia with PVCs and RBBB Labs reviewed and acceptable for procedure Plan for general anesthetic Medications/Allergies Home Medications Medication Instructions Recorded Confirmed Last Taken Type alendronate 70 mg tablet 70 mg PO Q7D 04/02/24 04/02/24 Unknown History amlodipine 2.5 mg tablet 2.5 mg PO DAILY 04/02/24 04/02/24 Unknown History atorvastatin 20 mg tablet 20 mg PO DAILY 04/02/24 04/02/24 Unknown History ipratropium 20 mcg-albuterol 100 1 puff inhalation DAILY 04/02/24 04/02/24 Unknown History mcg/actuation mist for inhalation (Combivent Respimat) lisinopril 5 mg tablet 5 mg PO DAILY 04/02/24 04/02/24 Unknown History metformin 500 mg tablet 500 mg PO DAILY 04/02/24 04/02/24 Unknown History Allergies Allergy/AdvReac Type Severity Reaction Status Date / Time codeine Allergy Unknown Verified 04/02/24 10:03 Current Medications Generic Name Dose Route Start Last Admin Trade Name Freq PRN Reason Stop Dose Admin Insulin Human Lispro 0 unit 04/02/24 13:08 04/02/24 14:21 Insulin Lispro 100 Unit/1 Ml SUBCUT Not Given [facility] Protocol COUNT INCLUDES THE [facility] Anesthesia Medical History (Updated 04/02/24 @ 12:23 by Sam Strickland DO) Osteoporosis Surgical History (Updated 04/02/24 @ 11:04 by Abel Karimi MD) History of kyphoplasty History of hysterectomy Family History (Updated 04/02/24 @ 11:04 by Able Karimi MD) Other CAD (coronary artery disease) Social History (Updated 04/02/24 @ 11:04 by Abel Karimi MD) Smoking and tobacco/nicotine status: former use of tobacco/nicotine Alcohol intake: never Data Anesthesia 04/02/24 11:43 04/02/24 11:43 Short CBC 04/02/24 Range/Units 11:43 WBC 17.04 H (3.29-11.43) 10^3/uL Hgb 12.20 (11.27-16.99) g/dL Hct 37.2 (36-47) % MCV 90.3 (85-98) fl Plt Count 221 (157-399) 10^3/cmm Neut % (Auto) 84.9 % Neut # (Auto) 14.48 H (1.8-7.7) 10^3/uL BMP 04/02/24 11:43 Sodium 137 Potassium 3.9 Chloride 100 Carbon Dioxide 24 BUN 10 Creatinine 0.7 Glucose 135 H Calcium 8.9 Liver Function 04/02/24 Range/Units 11:43 Total Bilirubin 0.6 (0.15-1.2) mg/dL AST 30 (0-32) U/L ALT 18 (0-33) U/L Alkaline Phosphatase 101 (35-105) U/L Albumin 4.0 (3.5-5.2) g/dL Urine 04/02/24 Range/Units 10:38 Urine Color Yellow (Yellow) Urine Appearance Clear (CLEAR) Urine pH 5.5 (5-7) Ur Specific [place] 1.014 (1.005-1.030) Urine Protein Trace A (Negative) Urine Glucose (UA) Negative (Normal) Urine Ketones Negative (Negative) Urine Nitrate Negative (Negative) Urine Bilirubin Negative (Negative) Ur Leukocyte Esterase Negative (Negative) Urine RBC 0-2 (0-2) /hpf Urine WBC 0-5 (0-5) /hpf Cardiac Studies: 2 No Data to Display
[2024-04-02] MEDS: acetaminophen 1,000 MG/100 ML PIGGYBACK 400 MG IV (15:17)
[2024-04-02] MEDS: ketorolac 30 mg/mL INJ IVP (15:21)
[2024-04-02] MEDS: sodium chloride 0.9% 1,000 ML 30 ML IV (15:22)
--- NOTE | 2024-04-02 18:00 | P.BOP_ITS ---
Date of Procedure: 04/02/2024 Surgeon: Froylan Dick DO Coach Builder(s): Nuno Dick PA-C Procedure(s) performed: Right distal third femur shaft open reduction internal fixation with retrograde femoral nail Findings of the procedure(s): Patient was found to have distal third femur shaft fracture underwent open reduction with internal fixation with retrograde femur nail tolerated procedure well without issues or complications. Estimated blood loss: 150 mL Specimen(s) removed: None Post-operative diagnosis: Right distal third femur shaft fracture displaced
--- NOTE | 2024-04-02 18:01 | PM.OP ---
Operative Report Date of procedure: April 02, 2024 Pre-op diagnosis: Right distal third femur shaft fracture Post-op diagnosis: Same Post-op findings: See operative report narrative Procedure done: Right distal third femur shaft open reduction internal fixation with retrograde femur nail Implants: [place] T2 SCN supracondylar nail 13 mm x 320 mm Distal locking screws Proximal locking screws Surgeon: Froylan Dick DO Double Backer: Nuno Dick PA-C: PA was necessary for assistance in this case with leg positioning assistance with reduction, retraction and protection of neurovascular structures as well as assistance in implantation/fixation wound closure and dressing application. Anesthesia: General Estimated blood loss: 150 mL IV fluids: 1000 mL Urine output: 300 mL Complications: None Findings: See operative report narrative Condition: stable Disposition: floor Brief History: patient is a pleasant 88-year-old female sustained a right distal third femur shaft fracture is slipped and fell outside. Brought to emergency department found to have right distal third femur shaft fracture. At this point in time orthopedics was consulted internal medicine admitted patient as primary. Orthopedics was consulted for treatment evaluations and recommendations. At this point in time given femur shaft would recommend surgical intervention for earlier mobilization as well as pain control as she is independent and ambulates assist device at baseline very active for her age. We talked about treatment options far as nonoperative operative mention through shared decision making she like to pursue surgical intervention of right femur open reduction internal fixation with retrograde femoral nail. She understands the risk benefits complication alternatives surgery and through shared decision-making X proceed with surgical invention. All questions answered at this time. Procedure: Patient seen by me in the preoperative holding area. Consent was reviewed and signed with patient/family. Correct extremities and subsequently part marked. Patient was then seen eval by anesthesia once cleared for surgery patient was taken back to the operative suite. Patient was transported onto the OR table. Patient was kept in supine position all bony prominences well-padded patient appropriate secured to the bed. Patient then subsequently underwent anesthesia per the anesthesia part once a properly anesthetized the right lower extremity was then x-rayed prior to to make sure satisfactory ability for reduction as well as satisfactory imaging. Once confirmed we then subsequently prepped and draped the right lower extremity seen orthopedic fashion. Final timeout performed. Patient received appropriate preoperative antibiotics. At this point in time this was the distal third shaft plan was for retrograde femur nail I then subsequently utilized a radiolucent triangle multiple attempts with just simple closed reduction was attempted however unsuccessful at this point time I made a small lateral incision at the site of the fractures sharp scalpel incision was made through skin and subcutaneous tissue the fascia was split from where the fracture site was added I then extended this proximally distally to have direct visualization of the fracture site evacuated hematoma and then subsequently utilized manual traction as has my assistant associate full professor assist with this as well as rotational to achieve reduction I then subsequently once I satisfied with the reduction I utilized a Gilberto clamp to clamp the fracture site and hold this to perform our fixation once I was satisfied with this reduction taken in multiple orthogonal images with x-ray I then proceeded with fixation with retrograde nail. I made a standard inferior patellar incision directly midline sharp scalpel incision through skin and subcutaneous tissue I then mobilized full-thickness skin flaps split the peritenon and then at the mid substance of the patellar tendon made an incision and then at this point in time started with my guidewire the guidepin was then placed in center position in the intercondylar notch an AP film and then switched to lateral and was in satisfactory position just anterior to Blumensaat's line in direct plane with the femur shaft. Once this was confirmed in appropriate starting position this was advanced to satisfactory position and then opening reamer was placed. I then advanced my ball-tipped guidewire while again maintaining the reduction into satisfactory position at just above the level of the lesser. I took appropriate measurement and this was measured to being a 320 mm length. I then subsequently reamed up to a size 15 mm and selected for a 13 mm x 320 mm nail this was then loaded and subsequently advanced to satisfactory position and depth. Once I satisfied with this placement I utilized the targeting guide to place 2 distal locking screws which were subsequently drilled measured and appropriate length screws were placed I then subsequently utilized the 2 oblique locking screws which subsequently drilled and appropriate length screws were placed I did have to change 1 of these out as 1 of these was too long. This completed my distal fixation of 4 distal locking screws. Next I then subsequently proceeded with proximal fixation. I utilized fluoroscopic imaging to obtain perfect circles subsequently made a small longitudinal incision proximally just through skin I utilized blunt finger dissection to split the rectus femoris directly down to bone. At this level I then subsequently utilized a Winston elevator to mobilize fascia directly onto bone. At this point time I then utilized perfect [place] freehand technique and drilled measured and placed appropriate length screws in the static locking position for the static hole distally and then in the oblong hole placed an additional locking screw for true screw fixation these are both measured and appropriate length screws were placed. Once this was then completed I then removed my Gilberto clamp at the fracture site and then thoroughly irrigated out the incisions. At this point time I took the femur through range of motion satisfactory stable fixation of the fracture site with satisfactory reduction I then took multiple orthogonal images of the entire femur and was satisfied with my fixation and construct. At this point in time I then thoroughly irrigated the incision sites. I maintain exact hemostasis throughout the procedure with bipolar electrocautery and all neurovascular structures were protected throughout this case. These were then closed in standard fashion 0 Vicryl for the deep fascial layers and tenderness layers and then subsequently 0 Vicryl for the deep subcutaneous tissue 2-0 Vicryl for the subcutaneous skin and then archel for the skin. Multiple Silverlon dressings were then placed with a bulky soft dressing throughout the right lower extremity with an Reynold wrap to help with swelling. Patient was then awakened from anesthesia and taken to PACU in stable condition. Disposition: Patient taken PACU in stable condition recovering well we will return to the floor postoperatively. Will be allowed weightbearing as tolerated to the right lower extremity. PT/OT, DVT prophylaxis internal medicine on board as primary orthopedics will continue to follow. Patient follow-up 2 weeks postoperative. Patient understand agree with current plan. Questions answered.
--- NOTE | 2024-04-02 18:09 | XRR_ITS ---
PROCEDURE INFORMATION: Exam: XR Right Femur Exam date and time: 04/02/2024 6:24 PM Age: 88 years old Clinical indication: Device placement; Joint fixation hardware; Additional info: Right femur retrograde nail TECHNIQUE: Imaging protocol: Radiologic exam of the right femur. Views: 2 views. COMPARISON: CT femur RT wo con* [id number] 04/02/2024 11:19 AM FINDINGS: Bones/joints: Postsurgical changes status post placement of an intramedullary ney with 2 proximal and 4 distal interlocking screws spanning a fracture of the mid to distal right femur. Soft tissues: Atherosclerotic disease.. XR/XR femur RT min 2V* [id number] IMPRESSION: Postsurgical changes status post placement of an intramedullary ney with 2 proximal and 4 distal interlocking screws spanning a fracture of the mid to distal right femur.
--- NOTE | 2024-04-02 18:10 | PM.PACU ---
PACU note Narrative: Patient is a 88-year-old female just underwent a right femur fracture ORIF. Pt transferred to PACU in stable condition. Dressing is dry. pt is awake and alert. Distal pulses are palpable toes are warm and well-perfused. Cap refill is normal and under 2 seconds. Unable to perform any further assessment due to residual anesthesia. Exam: unarousable Disposition: back to floor
[2024-04-02] MEDS: ondansetron 2 mg/ML SDV 2 mL 4 MG IVP (18:37)
[2024-04-02 20:27] LABS: Glucose Point of Care 166 mg/dL (70-110)
[2024-04-02] MEDS: atorvastatin 40 mg Tablet 20 MG PO (21:28)
[2024-04-02] MEDS: chlorhexidine gluconate 0.12% Btl 473 mL 30 ML MUCOUS MEM (21:30)
[2024-04-02] MEDS: ceFAZolin 2,000 MG in sodium chloride 0.9% (plus) 50 ML 100 MG IV (23:09)
[2024-04-02] MEDS: tranexamic acid 1,000 MG/100 ML PREMIX 600 MG IV (23:10)
[2024-04-03] VITALS (11 sets, daily range): BP systolic 92–126; BP diastolic 61–74; PULSE 79–109; RESP 14–22; TEMP 36.2–36.8; O2SAT 90–96
[2024-04-03] MEDS: ceFAZolin 2,000 MG in sodium chloride 0.9% (plus) 50 ML 100 MG IV ×2 (06:19→15:59)
[2024-04-03] MEDS: sodium chloride 0.9% 1,000 ML 75 ML IV (06:20)
[2024-04-03 06:22] LABS: Glucose Point of Care 156 mg/dL (70-110)
[2024-04-03 06:51] LABS: Basophils % 0.1 %; Hematocrit 32.2 % (36-47); Lymphocytes # 1.6 10^3/uL (0.8-4.8); Lymphocytes % 12.9 %; Mean Corpuscular HGB Conc 31.7 g/dL (30-55); Mean Corpuscular Hemoglobin 30.4 pg (27-33); Mean Corpuscular Volume 95.8 fl (85-98); Mean Platelet Volume 13.2 fL (7.4-10.4); Monocytes # 1.3 10^3/uL (0.2-0.9); Monocytes % 10.6 %; Neutrophils # 9.51 10^3/uL (1.8-7.7); Neutrophils % 76.1 %; Nucleated Red Blood Cells % 0 %; Platelet Count 175 10^3/cmm (157-399); Red Blood Count 3.36 10^6/uL (3.85-5.65); Red Cell Distribution Width 13.3 % (12.1-15.1)
[2024-04-03 07:07] LABS: Anion Gap 13.4 (5-19); Blood Urea Nitrogen 12 mg/dL (8-23); Calcium 7.8 mg/dL (8.5-10.5); Carbon Dioxide 23 mmol/L (22-29); Chloride 103 mmol/L (98-107); Creatinine Clr Calc Pharmacy 36.2198; Glucose 145 mg/dL (65-115); Osmolality Calculated 282 mOsm/kg (285-295); Potassium 4.4 mmol/L (3.5-5.1); Sodium 135 mmol/L (136-145)
[2024-04-03] MEDS: iron polysaccharide complex 150 mg Capsule PO ×2 (08:27→18:12)
[2024-04-03] MEDS: docusate sodium 100 mg Capsule PO ×2 (08:27→18:12)
[2024-04-03] MEDS: insulin lispro 100 unit/1 mL SUBCUT ×2 (08:27→18:11)
[2024-04-03] MEDS: calcium carb-vit d 600mg/400unit 1 Tablet 1 EACH PO ×2 (08:27→18:12)
[2024-04-03] MEDS: multivitamin therapeutic Tablet 1 TAB PO (08:27)
[2024-04-03] MEDS: chlorhexidine gluconate 0.12% Btl 473 mL 30 ML MUCOUS MEM ×4 (08:28→20:21)
[2024-04-03] MEDS: enoxaparin 30 mg/0.3 mL Syringe SUBCUT (08:28)
[2024-04-03] MEDS: mupirocin oint 22 gm 1 APPLIC NASAL ×2 (08:31→18:13)
--- NOTE | 2024-04-03 08:35 | P.PN_ITS ---
Subjective 2 Subjective: Reports pain in leg is under control. No other concerns currently. Medications: Reviewed: Yes Vitals/I&O/Wt Last Vital Signs Temp 97.1 F L 04/03/24 07:23 Pulse 79 04/03/24 07:23 Resp 17 04/03/24 07:23 BP 98/63 04/03/24 07:23 Pulse Ox 96 04/03/24 07:23 O2 Del Method Oxymask 04/03/24 07:23 O2 Flow Rate 2 04/03/24 07:23 04/02/24 04/03/24 04/03/24 22:59 06:59 14:59 Intake Total 320 / 320 270 / 590 Output Total 700 / 700 250 / 950 Balance -380 / -380 20 / -360 Weight last 48 hrs Weight 48.126 kg Weight 42.184 kg Weight 44.906 kg Physical Exam 2 Narrative: General Exam no distress Neck is supple no lymphadenopathy thyromegaly Cardiovascular regular rhythm, tachycardic, 3/6 systolic murmur heard best in the aortic area Lungs clear no wheezing or crackles Abdomen is soft nontender positive bowel sounds. No obvious organomegaly Extremities no cyanosis clubbing. Dressing noted right leg Urinary Catheter Management: Calhoun: Cath Placed During This Visit: yes Reason for Continuing Indwelling Catheter: Perioperative Use in Selected Surgeries Urinary Catheter Date of Insertion: 04/02/24 Urinary Catheter Time of Insertion: 10:45 Data 04/03/24 05:51 04/03/24 05:51 A&P Assessment and plan (1) Right femoral shaft fracture: Patient presents with femur fracture, following mechanical fall Appreciate orthopedic consultation Postoperative day #1 status post right femur ORIF Pain control per Ortho (2) Heart murmur: Patient with heart murmur suggestive of aortic stenosis She denies any chest discomfort, no dizziness or syncope in the last 3 to 4 months Awaiting ultrasound (3) Hypertension: Hold blood pressure medication at this time. Blood pressure somewhat soft (4) Diabetes mellitus: When starting diet, will need consistent carb Sliding scale insulin (5) Asthma: DuoNeb as needed Plan Other medical problems as outlined in past medical history Full code Lovenox for DVT prophylaxis Attestations 2 Medical Necessity Statement*: Needs continued hospitalization for close monitoring following ORIF right femur status post fracture. May also need nursing facility placement. Diagnoses Right femoral shaft fracture S72.301A Heart murmur R01.1 Hypertension I10 Diabetes mellitus E11.9 Asthma J45.909 Time Spent (min) 16
[2024-04-03] MEDS: oxyCODONE 5 mg IR Tab/Cap PO ×2 (08:44→18:12)
--- NOTE | 2024-04-03 10:13 | PM.PN ---
Subjective Subjective: Patient seen and examined with her son at bedside she is doing well pain controlled medications. Vitals/I&O/Wt Last Vital Signs Temp 97.1 F L 04/03/24 07:23 Pulse 79 04/03/24 07:23 Resp 17 04/03/24 08:44 BP 98/63 04/03/24 07:23 Pulse Ox 96 04/03/24 08:44 O2 Del Method Oxymask 04/03/24 07:23 O2 Flow Rate 2 04/03/24 07:23 04/02/24 04/03/24 04/03/24 22:59 06:59 14:59 Intake Total 320 / 320 270 / 590 240 / 240 Output Total 700 / 700 250 / 950 Balance -380 / -380 20 / -360 240 / 240 Weight last 48 hrs Weight 106 lb 1.6 oz Weight 93 lb Weight 99 lb Physical Exam Narrative: Dressing on in place to the right lower extremity is clean dry and intact normal postoperative swelling about the left thigh compartments are soft compressible. Patient is able to wiggle toes plantarflex and dorsiflex ankle sensations intact light touch distally. Calf soft nontender she right lower extremity is warm well-perfused brisk capillary refill less than 2 seconds, distal pulse palpable Urinary Catheter Management: Calhoun: Cath Placed During This Visit: yes Reason for Continuing Indwelling Catheter: Perioperative Use in Selected Surgeries Urinary Catheter Date of Insertion: 04/02/24 Urinary Catheter Time of Insertion: 10:45 Data 04/03/24 05:51 04/03/24 05:51 Xray Ortho: Radiologist's impression: [address] [address] XRay Report Signed Patient: Ally Underwood Unit #: [id number] : [id number] Age/Sex: 88 / F ADM Date: 04/02/24 Loc: [facility] Room/Bed: [facility] [place] Attending Dr: Abel Karimi MD Ordering Provider/Ordering MD: Froylan Dick Date of Service: 04/02/24 Procedure(s): XR femur RT min 2V* [id number] Accession Number(s): [id number] Report Number: [id number] PROCEDURE INFORMATION: Exam: XR Right Femur Exam date and time: 04/02/2024 6:24 PM Age: 88 years old Clinical indication: Device placement; Joint fixation hardware; Additional info: Right femur retrograde nail TECHNIQUE: Imaging protocol: Radiologic exam of the right femur. Views: 2 views. COMPARISON: CT femur RT wo con* [id number] 04/02/2024 11:19 AM FINDINGS: Bones/joints: Postsurgical changes status post placement of an intramedullary ney with 2 proximal and 4 distal interlocking screws spanning a fracture of the mid to distal right femur. Soft tissues: Atherosclerotic disease.. XR/XR femur RT min 2V* [id number] IMPRESSION: Postsurgical changes status post placement of an intramedullary ney with 2 proximal and 4 distal interlocking screws spanning a fracture of the mid to distal right femur. A&P Assessment and plan (1) Right femoral shaft fracture: Plan Postop day 1 right femur retrograde nail AM labs reviewed Postop x-rays reviewed Complete postoperative antibiotics Complete postoperative TXA Weight-bear as tolerated right lower extremity PT/OT Ice and elevate as needed for pain and swelling Pain control DVT prophylaxis?[facility] Internal medicine on board as primary tax services specialist case management for discharge planning Attestations Medical Necessity Statement*: Ongoing care status post right femur retrograde nail Coding Level of Care Code Acute Code for [facility] Fwd Diagnoses Right femoral shaft fracture S72.301A Time Spent (min) 15
--- NOTE | 2024-04-03 10:20 | PC.CHAP ---
Pastoral Care Encounter/Spiritual Assessment Type of Contact [] Declined fruit cutter visit [] Patient/Family/Request visit [] Outpatient visit [] Follow-up visit [] Physician referral [] Code/Alert [x] Routine visit [] Staff referral [] Actively dying [] Patient sleeping [x] Family support [] [] Out of room [] Palliative care [] [] Receiving care in room [] Pre-surgical visit [] Trauma [] Long length of stay [] ICU visit [] Other: Relational/Emotional Strength [x] Patient feels connected with others/family/visitors/staff [] Distress [] Loneliness/isolation [] Abandonment Spirituality of Patient [x] Person of Lolis [] Attends Yarsani of their Ollis [x] Believes in Prayer [] Reads Bible or Hinduism materials [] There are Spiritual issues to be addressed Senior Premium Auditor Interventions [x] Prayer [x] Active listening [] Non-anxious presence [x] Spiritual/emotional support [] Crisis/trauma care [] Spiritual counseling [] Bereavement support [] Provided bereavement packet [] Provided Bible/devotional materials [] Provided toy/stuffed animal, coloring book to patient or family member [] Provided Communion [] Anointing/[place] [] Salvation [x] Completed spiritual assessment [] Other: Impact on Illness or Injury [] Angry [] Fearful [] Anxious [] Often cries [] Exhaustion [] Unable to work [] Unable to attend samaritan [] Unable to walk/stand [] Unable to read [] Unable to drive [] Unable to eat/drink [] Unable to sleep [] Unable to be with family [] Patient intubated [] Other: Summary Time spent with patient 5 min
[2024-04-03 11:19] LABS: Glucose Point of Care 109 mg/dL (70-110)
[2024-04-03 17:14] LABS: Glucose Point of Care 177 mg/dL (70-110)
[2024-04-03] MEDS: atorvastatin 40 mg Tablet 20 MG PO (20:20)
[2024-04-03 20:49] LABS: Glucose Point of Care 88 mg/dL (70-110)
[2024-04-04 03:33] VITALS: BP 107/67; PULSE 90; RESP 18; TEMP 36.5; O2SAT 92
[2024-04-04 04:56] LABS: Basophils % 0.4 %; Eosinophils % 0.3 %; Hematocrit 29.6 % (36-47); Lymphocytes # 3.3 10^3/uL (0.8-4.8); Lymphocytes % 30.4 %; Mean Corpuscular HGB Conc 31.8 g/dL (30-55); Mean Corpuscular Hemoglobin 29.7 pg (27-33); Mean Corpuscular Volume 93.4 fl (85-98); Mean Platelet Volume 12.7 fL (7.4-10.4); Monocytes # 1.4 10^3/uL (0.2-0.9); Monocytes % 12.5 %; Neutrophils # 6.12 10^3/uL (1.8-7.7); Neutrophils % 55.9 %; Nucleated Red Blood Cells % 0 %; Platelet Count 175 10^3/cmm (157-399); Red Blood Count 3.17 10^6/uL (3.85-5.65); Red Cell Distribution Width 13.6 % (12.1-15.1); White Blood Count 10.94 10^3/uL (3.29-11.43)
[2024-04-04 05:15] LABS: Anion Gap 11.4 (5-19); Blood Urea Nitrogen 10 mg/dL (8-23); Calcium 8.1 mg/dL (8.5-10.5); Carbon Dioxide 27 mmol/L (22-29); Chloride 106 mmol/L (98-107); Creatinine Clr Calc Pharmacy 36.6292; Glucose 128 mg/dL (65-115); Osmolality Calculated 291 mOsm/kg (285-295); Potassium 4.4 mmol/L (3.5-5.1); Sodium 140 mmol/L (136-145)
[2024-04-04 06:23] LABS: Glucose Point of Care 120 mg/dL (70-110)
[2024-04-04 08:20] VITALS: BP 116/62; PULSE 78; RESP 18; TEMP 36.6; O2SAT 94
[2024-04-04] MEDS: multivitamin therapeutic Tablet 1 TAB PO (08:32)
[2024-04-04] MEDS: iron polysaccharide complex 150 mg Capsule PO ×2 (08:32→17:05)
[2024-04-04] MEDS: calcium carb-vit d 600mg/400unit 1 Tablet 1 EACH PO ×2 (08:32→17:05)
[2024-04-04] MEDS: docusate sodium 100 mg Capsule PO ×2 (08:32→17:05)
[2024-04-04] MEDS: chlorhexidine gluconate 0.12% Btl 473 mL 30 ML MUCOUS MEM ×4 (08:33→20:09)
[2024-04-04] MEDS: mupirocin oint 22 gm 1 APPLIC NASAL ×2 (08:34→17:06)
[2024-04-04 08:49] VITALS: PULSE 87; RESP 16; O2SAT 95
[2024-04-04] MEDS: enoxaparin 30 mg/0.3 mL Syringe SUBCUT (10:06)
[2024-04-04 11:41] LABS: Glucose Point of Care 111 mg/dL (70-110)
[2024-04-04] MEDS: ketorolac 30 mg/mL INJ 15 MG IVP (12:01)
[2024-04-04] MEDS: acetaminophen 325 mg Tablet 650 MG PO (12:01)
--- NOTE | 2024-04-04 12:11 | PC.SOCIAL ---
IMM updated IMM dated and initialed, copy given to patient and copy placed in chart.
[2024-04-04 12:16] VITALS: BP 130/67; PULSE 93; RESP 18; TEMP 36.5; O2SAT 94
--- NOTE | 2024-04-04 14:44 | P.PN_ITS ---
Subjective 2 Subjective: Hospital course, labs appreciated. Today morning patient seen sitting comfortably in bed. Working well with physical therapy. Denies any nausea, vomiting, headache. Has remained hemodynamically stable and afebrile. Medications: Reviewed: Yes Vitals/I&O/Wt Last Vital Signs Temp 97.7 F 04/04/24 12:16 Pulse 93 04/04/24 12:16 Resp 18 04/04/24 12:16 BP 130/67 04/04/24 12:16 Pulse Ox 94 04/04/24 12:16 O2 Del Method Room Air 04/04/24 12:16 O2 Flow Rate 0.5 04/04/24 08:49 04/03/24 04/04/24 04/04/24 22:59 06:59 14:59 Intake Total 2720 / 3200 720 / 720 Balance 2720 / 2750 720 / 720 Weight last 48 hrs Weight 48.67 kg Weight 48.126 kg Physical Exam 2 Narrative: General Exam no distress Neck is supple no lymphadenopathy thyromegaly Cardiovascular regular rhythm, tachycardic, 3/6 systolic murmur heard best in the aortic area Lungs clear no wheezing or crackles Abdomen is soft nontender positive bowel sounds. No obvious organomegaly Extremities no cyanosis clubbing. Dressing noted right leg Urinary Catheter Management: Calhoun: Cath Placed During This Visit: yes, but has since been removed by the nurse Reason for Continuing Indwelling Catheter: Perioperative Use in Selected Surgeries Urinary Catheter Date of Insertion: 04/02/24 Urinary Catheter Time of Insertion: 10:45 Date Urinary Catheter Removed: 04/03/24 Time Urinary Catheter Discontinued: 13:15 Data 04/04/24 04:37 04/04/24 04:37 A&P Assessment and plan (1) Right femoral shaft fracture: Postoperative day 2. Post-ORIF. Hemoglobin stable. Physical therapy, anticoagulation as per orthopedic team. Continue to monitor (2) Heart murmur: Echocardiogram done shows EF of 60%, grade 1 diastolic dysfunction, moderate aortic valve stenosis with mean gradient of 22 mmHg, mildly increased LA size, PASP of 38 mmHg. (3) Hypertension: Goal blood pressure less than 140/90 mmHg with mean over 65. Takes amlodipine 2.5 mg and lisinopril 5 mg daily at home. Depending on blood pressures will plan to add lisinopril and low-dose metoprolol if possible. (4) Diabetes mellitus: Low-dose sliding scale insulin. Check A1c. (5) Asthma: DuoNeb as needed Plan Other medical problems as outlined in past medical history Full code Lovenox for DVT prophylaxis Discharge plan: Plan to discharge to SNF for further rehabitation. Attestations 2 Medical Necessity Statement*: Requires further hospitalization for postoperative care, post-ORIF passive discharge planning is sought. Diagnoses Right femoral shaft fracture S72.301A Heart murmur R01.1 Hypertension I10 Diabetes mellitus E11.9 Asthma J45.909
[2024-04-04 15:19] LABS: Estmated Average Glucose 114; Hemoglobin A1C 5.6 % (4.0-6.0)
[2024-04-04 15:29] VITALS: BP 130/74; PULSE 78; RESP 17; TEMP 36.6; O2SAT 93
[2024-04-04 15:30] LABS: Iron 36 ug/dL (37-145); Percent Saturation 16.2 % (20-50); Thyroid Stimulating Hormone 4.57 uIU/mL (0.27-4.20); Total Iron Binding Capacity 221 mcg/dl; Unsaturated Iron Binding 185 ug/dL (112-347); Vitamin B12 215 pg/mL (232-1245)
[2024-04-04 16:34] LABS: Glucose Point of Care 107 mg/dL (70-110)
--- NOTE | 2024-04-04 16:35 | P.PN_ITS ---
Subjective 2 Subjective: Patient seen and examined today she is progressing well has gotten up and walked with therapy. Patient sitting up and comfortable at bedside today. Stable from Ortho standpoint. Vitals/I&O/Wt Last Vital Signs Temp 97.8 F 04/04/24 15:29 Pulse 78 04/04/24 15:29 Resp 17 04/04/24 15:29 BP 130/74 04/04/24 15:29 Pulse Ox 93 04/04/24 15:29 O2 Del Method Room Air 04/04/24 15:29 O2 Flow Rate 0.5 04/04/24 08:49 04/04/24 04/04/24 04/04/24 06:59 14:59 22:59 Intake Total 720 / 720 Balance 720 / 720 Weight last 48 hrs Weight 107 lb 4.8 oz Weight 106 lb 1.6 oz Physical Exam 2 Narrative: Dressing on in place to the right lower extremity is clean dry and intact normal postoperative swelling about the left thigh compartments are soft compressible. Patient is able to wiggle toes plantarflex and dorsiflex ankle sensations intact light touch distally. Calf soft nontender she right lower extremity is warm well-perfused brisk capillary refill less than 2 seconds, distal pulse palpable Urinary Catheter Management: Calhoun: Cath Placed During This Visit: yes, but has since been removed by the nurse Reason for Continuing Indwelling Catheter: Perioperative Use in Selected Surgeries Urinary Catheter Date of Insertion: 04/02/24 Urinary Catheter Time of Insertion: 10:45 Date Urinary Catheter Removed: 04/03/24 Time Urinary Catheter Discontinued: 13:15 Data 04/04/24 04:37 04/04/24 04:37 A&P Assessment and plan (1) Right femoral shaft fracture: Plan Postop day 2 right femur retrograde nail AM labs reviewed Weight-bear as tolerated right lower extremity PT/OT Ice and elevate as needed for pain and swelling Pain control DVT prophylaxis?[facility] Internal medicine on board as primary client services account manager case management for discharge planning Patient is able this point time for discharge from orthopedic standpoint. Orthopedic surgery team will sign off patient at this time follow peripherally if there is any question pertaining to patient's care for for contact orthopedics on-call. Patient's appropriate discharge directions and pain medication as well as DVT prophylaxis in patient's chart. Follow-up in the orthopedic office in 2 weeks for incision check repeat x-rays and staple removal questions answered at this time. Attestations 2 Medical Necessity Statement*: Ongoing care status post right femur retrograde nail Coding Level of Care Code Acute Code for [facility] Fwd Diagnoses Right femoral shaft fracture S72.301A Time Spent (min) 15
[2024-04-04 16:49] LABS: T3 Free 2.3 PG/ML (2.0-4.4)
[2024-04-04 20:00] VITALS: BP 138/71; PULSE 90; RESP 16; TEMP 36.6; O2SAT 95
[2024-04-04] MEDS: atorvastatin 40 mg Tablet 20 MG PO (20:09)
[2024-04-04 20:45] LABS: Glucose Point of Care 113 mg/dL (70-110)
[2024-04-05] VITALS: BP 118/66; PULSE 90; RESP 17; TEMP 36.6; O2SAT 94
[2024-04-05 04:00] VITALS: BP 134/76; PULSE 90; RESP 18; TEMP 37; O2SAT 94
[2024-04-05 04:23] VITALS: RESP 18; O2SAT 94
[2024-04-05] MEDS: oxyCODONE 5 mg IR Tab/Cap PO (04:23)
[2024-04-05 05:20] LABS: Basophils # 0.1 10^3/uL (0.0-0.1); Basophils % 0.7 %; Eosinophils # 0.1 10^3/uL (0.0-0.8); Eosinophils % 1.2 %; Hematocrit 31.1 % (36-47); Lymphocytes # 3.2 10^3/uL (0.8-4.8); Lymphocytes % 31.1 %; Mean Corpuscular HGB Conc 32.2 g/dL (30-55); Mean Corpuscular Volume 93.4 fl (85-98); Mean Platelet Volume 12.1 fL (7.4-10.4); Neutrophils # 5.85 10^3/uL (1.8-7.7); Neutrophils % 56.5 %; Nucleated Red Blood Cells % 0 %; Platelet Count 180 10^3/cmm (157-399); Red Blood Count 3.33 10^6/uL (3.85-5.65); Red Cell Distribution Width 13.4 % (12.1-15.1); White Blood Count 10.35 10^3/uL (3.29-11.43)
[2024-04-05 05:53] LABS: Alanine Aminotransferase 14 U/L (0-33); Albumin Level 3.3 g/dL (3.5-5.2); Alkaline Phosphatase 84 U/L (35-105); Anion Gap 11.2 (5-19); Aspartate Amino Transferase 42 U/L (0-32); Blood Urea Nitrogen 11 mg/dL (8-23); Calcium 8.4 mg/dL (8.5-10.5); Carbon Dioxide 28 mmol/L (22-29); Chloride 101 mmol/L (98-107); Creatinine Clr Calc Pharmacy 36.5269; Glucose 121 mg/dL (65-115); Osmolality Calculated 283 mOsm/kg (285-295); Potassium 4.2 mmol/L (3.5-5.1); Sodium 136 mmol/L (136-145); Total Bilirubin 0.9 mg/dL (0.15-1.2); Total Protein 6.3 g/dL (6.6-8.7)
[2024-04-05 05:54] LABS: Chol HDL Ratio 2.15 mg/dL (0.0-4.40); Cholesterol 88 mg/dL (0-200); HDL Cholesterol 41 mg/dL (60-100); LDL Cholesterol Calculated 27 mg/dL (50-129); Magnesium 1.3 mg/dL (1.7-2.3); Triglycerides 101 mg/dL (0-150); VLDL Cholestrol Calculation 20 mg/dL (0-30)
[2024-04-05 06:03] LABS: Folate Level 15.9 ng/mL (4.8-37.3)
[2024-04-05 06:21] LABS: Glucose Point of Care 134 mg/dL (70-110)
[2024-04-05 07:48] VITALS: BP 130/72; PULSE 77; RESP 17; TEMP 36.4; O2SAT 95
[2024-04-05] MEDS: calcium carb-vit d 600mg/400unit 1 Tablet 1 EACH PO (09:52)
[2024-04-05] MEDS: enoxaparin 30 mg/0.3 mL Syringe SUBCUT (09:52)
[2024-04-05] MEDS: iron polysaccharide complex 150 mg Capsule PO (09:52)
[2024-04-05] MEDS: multivitamin therapeutic Tablet 1 TAB PO (09:53)
[2024-04-05] MEDS: chlorhexidine gluconate 0.12% Btl 473 mL 30 ML MUCOUS MEM (09:53)
[2024-04-05] MEDS: mupirocin oint 22 gm 1 APPLIC NASAL (09:53)
[2024-04-05] MEDS: docusate sodium 100 mg Capsule PO (09:53)
[2024-04-05 10:41] LABS: Glucose Point of Care 129 mg/dL (70-110)
[2024-04-05 11:02] LABS: SARS Covid-2 Antigen Negative (Negative)
--- NOTE | 2024-04-05 11:09 | P.DS_ITS ---
Discharge Providers Date of Admission: 04/02/24 12:37 Date of Discharge: April 05, 2024 Attending Provider at Admission: Abel Karimi MD Attending Provider at Discharge: Fabricio Griffiths MD Consults: Orthopedic: Dr. Dick Primary Care Provider: Geetha Antunez Diagnoses at Discharge Discharge Diagnosis (1) Right femoral shaft fracture: Status: Acute Reason for Visit Reason for Visit: fall, right leg pain Brief History: As per HPI: Ally Underwood is a 88 year old female presenting from home with history of a slip/fall while out feeding her chickens some grain. She reports she injured her right leg. She denies hitting her head, or any other injuries. She denies a syncopal episode. She reports no recent falls, no chest discomfort with exertion, no dizziness with exertion. She has not been ill lately. She has had surgeries in the past and has had no issues with anesthesia. She denies being on any blood thinner or having any bleeding disorder. Hospital Course Hospital Course Patient was admitted to the hospital for the evaluation and management of right femur shaft fracture post fall. Orthopedic was consulted and she underwent ORIF on 04/02. She did have significant heart murmur on admission for which she underwent echocardiogram which is consistent with moderate aortic stenosis, nor mal EF with grade 1 diastolic dysfunction. See discharge. Risks continue with the patient and she requested to be transferred to SNF for further rehabitation. She has been discharged in hemodynamically stable condition for further rehabitation at SNF. Physical Exam Narrative: General Exam no distress Neck is supple no lymphadenopathy thyromegaly Cardiovascular regular rhythm, tachycardic, 3/6 systolic murmur heard best in the aortic area Lungs clear no wheezing or crackles Abdomen is soft nontender positive bowel sounds. No obvious organomegaly Extremities no cyanosis clubbing. Dressing noted right leg Urinary Catheter Management: [place]: Cath Placed During This Visit: yes, but has since been removed by the nurse Reason for Continuing Indwelling Catheter: Perioperative Use in Selected Surgeries Urinary Catheter Date of Insertion: 04/02/24 Urinary Catheter Time of Insertion: 10:45 Date Urinary Catheter Removed: 04/03/24 Time Urinary Catheter Discontinued: 13:15 Discharge Data Studies Completed and Pending Completed Studies During Hospitalization Category Date Time Status CT femur RT wo con* [id number] Stat Cat Scan 04/02/24 10:50 Completed XR chest 1V portable [id number] Urgent Exams 04/02/24 09:55 Completed XR femur RT min 2V* [id number] Routine Exams 04/02/24 18:09 Completed XR femur RT min 2V* [id number] Stat Exams 04/02/24 09:55 Completed XR hip RT 2-3V wo/w pel* [id number] Stat Exams 04/02/24 09:55 Completed XR knee RT 3V* [id number] Stat Exams 04/02/24 09:55 Completed XR tibia fibula RT 2V [id number] Stat Exams 04/02/24 10:22 Completed CV. echo complete* [id number] Routine Ultrasound 04/02/24 10:59 Completed Pending at discharge Category Date Time Status MAG [Magnesium] AM LABS Lab 04/06/24 04:00 Ordered MAG [Magnesium] AM LABS Lab 04/07/24 04:00 Ordered Radiology Impressions C-Arm Fluoroscopy 04/02/24 00:00 IMPRESSION: Status post ORIF RIGHT femoral diaphyseal fracture now in excellent position and alignment compared to the preoperative exam. Chest X-Ray 04/02/24 09:55 IMPRESSION: Subtle pulmonary venous hypertension without pulmonary edema and mild stable cardiomegaly. 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 Knee X-Ray 04/02/24 09:55 IMPRESSION: 1. Intact right knee. 2. Angulated and displaced fracture mid shaft right femur. Tibia/Fibula X-Ray 04/02/24 10:22 IMPRESSION: 1. Intact right tibia and fibula with normal alignment at the knee and ankle. 2. Please reference separately dictated radiograph of the femur report same day. Femur CT 04/02/24 10:50 IMPRESSION: 1. Intramuscular hemorrhage at the site of the fracture predominantly involving the vastus lateralis and vastus intermedius muscles. 2. There is additional subcutaneous hemorrhage but not well formed. 3. Acute femoral diaphyseal fracture with overlapping fracture fragments by 3.5 cm. Femur X-Ray 04/02/24 18:09 IMPRESSION: Postsurgical changes status post placement of an intramedullary ney with 2 proximal and 4 distal interlocking screws spanning a fracture of the mid to distal right femur. Echocardiogram: CONCLUSIONS Moderate left ventricular hypertrophy. LV ejection fraction around 60%.Grade I/IV diastolic dysfunction (abnormal relaxation filling pattern), normal to mildly elevated filling pressures. Moderate aortic valve stenosis, mean gradient 22 mmHg, LI 1.1 cm squared. Peak velocity of 3.6 m/s with a peak gradient of 52mmHg. Mildly increased left atrial size. Mild mitral valve regurgitation. Trace to mild tricuspid valve regurgitation. Estimated pulmonary artery peak systolic pressure 38 mmHg. There is no pericardial effusion. There are no intracardiac masses. No similar previous studies are available for comparison Dr America Valentin MD [facility] (Electronically Signed) Final Date: 03 April 2024 Laboratory Results WBC 10.35 10^3/uL (3.29-11.43) 04/05/24 05:00 RBC 3.33 10^6/uL (3.85-5.65) L 04/05/24 05:00 Hgb 10.00 g/dL (11.27-16.99) L 04/05/24 05:00 Hct 31.1 % (36-47) L 04/05/24 05:00 MCV 93.4 fl (85-98) 04/05/24 05:00 MCH 30.0 pg (27-33) 04/05/24 05:00 MCHC 32.2 g/dL (30-55) 04/05/24 05:00 RDW 13.4 % (12.1-15.1) 04/05/24 05:00 Plt Count 180 10^3/cmm (157-399) 04/05/24 05:00 MPV 12.1 fL (7.4-10.4) H 04/05/24 05:00 Neut % (Auto) 56.5 % 04/05/24 05:00 Lymph % (Auto) 31.1 % 04/05/24 05:00 Weber % (Auto) 10.0 % 04/05/24 05:00 Eos % (Auto) 1.2 % 04/05/24 05:00 Baso % (Auto) 0.7 % 04/05/24 05:00 Neut # (Auto) 5.85 10^3/uL (1.8-7.7) 04/05/24 05:00 Lymph # (Auto) 3.2 10^3/uL (0.8-4.8) 04/05/24 05:00 Weber # (Auto) 1.0 10^3/uL (0.2-0.9) H 04/05/24 05:00 Eos # (Auto) 0.1 10^3/uL (0.0-0.8) 04/05/24 05:00 Baso # (Auto) 0.1 10^3/uL (0.0-0.1) 04/05/24 05:00 Nucleated RBC % (auto) 0 % 04/05/24 05:00 Nucleated RBCs # 0.0 /100WBC 04/05/24 05:00 Sodium 136 mmol/L (136-145) 04/05/24 05:00 Potassium 4.2 mmol/L (3.5-5.1) 04/05/24 05:00 Chloride 101 mmol/L (98-107) 04/05/24 05:00 Carbon Dioxide 28 mmol/L (22-29) 04/05/24 05:00 Anion Gap 11.2 (5-19) 04/05/24 05:00 BUN 11 mg/dL (8-23) 04/05/24 05:00 Creatinine 0.7 mg/dL (0.5-0.9) 04/05/24 05:00 GFR Calculation Not Reportable 04/05/24 05:00 Glucose 121 mg/dL (65-115) H 04/05/24 05:00 POC Glucose 129 mg/dL (70-110) H 04/05/24 10:31 Estimat Average Glucose 114 04/04/24 04:37 Hemoglobin A1c 5.6 % (4.0-6.0) 04/04/24 04:37 Calculated Osmolality 283 mOsm/kg (285-295) L 04/05/24 05:00 Calcium 8.4 mg/dL (8.5-10.5) L 04/05/24 05:00 Magnesium 1.3 mg/dL (1.7-2.3) L 04/05/24 05:00 Iron 36 ug/dL (37-145) L 04/04/24 04:37 TIBC 221 mcg/dl 04/04/24 04:37 % Saturation 16.2 % (20-50) L 04/04/24 04:37 Unsat Iron Binding 185 ug/dL (112-347) 04/04/24 04:37 Total Bilirubin 0.9 mg/dL (0.15-1.2) 04/05/24 05:00 AST 42 U/L (0-32) H 04/05/24 05:00 ALT 14 U/L (0-33) 04/05/24 05:00 Alkaline Phosphatase 84 U/L (35-105) 04/05/24 05:00 Total Protein 6.3 g/dL (6.6-8.7) L 04/05/24 05:00 Albumin 3.3 g/dL (3.5-5.2) L 04/05/24 05:00 Globulin 3.0 g/dL (1.3-4.6) 04/05/24 05:00 Triglycerides 101 mg/dL (0-150) 04/05/24 05:00 Cholesterol 88 mg/dL (0-200) 04/05/24 05:00 LDL Cholesterol, Calc 27 mg/dL (50-129) L 04/05/24 05:00 Total VLDL Cholesterol 20 mg/dL (0-30) 04/05/24 05:00 HDL Cholesterol 41 mg/dL (60-100) L 04/05/24 05:00 Cholesterol/HDL Ratio 2.15 mg/dL (0.0-4.40) 04/05/24 05:00 Vitamin B12 215 pg/mL (232-1245) L 04/04/24 04:37 Folate 15.9 ng/mL (4.8-37.3) 04/05/24 05:00 TSH 4.57 uIU/mL (0.27-4.20) H 04/04/24 04:37 Free T4 1.50 ng/dL (0.82-1.77) 04/04/24 16:01 Free T3 2.3 PG/ML (2.0-4.4) 04/04/24 16:01 Urine Color Yellow (Yellow) 04/02/24 10:38 Urine Appearance Clear (CLEAR) 04/02/24 10:38 Urine pH 5.5 (5-7) 04/02/24 10:38 Ur Specific Burchard 1.014 (1.005-1.030) 04/02/24 10:38 Urine Protein Trace (Negative) A 04/02/24 10:38 Urine Glucose (UA) Negative (Normal) 04/02/24 10:38 Urine Ketones Negative (Negative) 04/02/24 10:38 Urine Blood Negative (Negative) 04/02/24 10:38 Urine Nitrate Negative (Negative) 04/02/24 10:38 Urine Bilirubin Negative (Negative) 04/02/24 10:38 Urine Urobilinogen 0.2 mg/dL (Negative) 04/02/24 10:38 Ur Leukocyte Esterase Negative (Negative) 04/02/24 10:38 Urine RBC 0-2 /hpf (0-2) 04/02/24 10:38 Urine WBC 0-5 /hpf (0-5) 04/02/24 10:38 Ur Squamous Epith Cells 0-5 /hpf (0-5) 04/02/24 10:38 Amorphous Sediment Not Reportable 04/02/24 10:38 Urine Bacteria None seen /hpf (NONE) 04/02/24 10:38 Hyaline Casts 2.05 /lpf 04/02/24 10:38 SARS-CoV-2 Ag (Rapid) Negative (Negative) 04/05/24 09:50 Blood Type A Negative 04/02/24 19:58 Rho(D) Type Rh negative 04/02/24 19:58 Antibody Screen Negative 04/02/24 19:58 Vitals Last Vital Signs Temp 97.5 F L 04/05/24 07:48 Pulse 77 04/05/24 07:48 Resp 17 04/05/24 07:48 BP 130/72 04/05/24 07:48 Pulse Ox 95 04/05/24 07:48 O2 Del Method Room Air 04/05/24 07:48 O2 Flow Rate 0.5 04/04/24 08:49 Discharge Plan Discharge Patient Disposition: Xfer SNF Condition: Stable Prescriptions: New calcium carbonate-vitamin D3 600 mg-10 mcg (400 unit) Tablet 1 tab PO BID 30 Days Qty: 60 0RF hydrocodone-acetaminophen 7.5-325 mg tablet 1 tab PO Q6H PRN (Reason: pain postop) 7 Days Qty: 28 0RF ondansetron 4 mg tablet,disintegrating 4 mg PO Q8H 3 Days Qty: 9 0RF enoxaparin [Lovenox] 30 mg/0.3 mL syringe 30 mg SUBCUT DAILY 35 Days Qty: 10.5 0RF calcium carbonate-vitamin D3 [Calcium 600 + D(3)] 600 mg-10 mcg (400 unit) tablet 1 tab PO DAILY 30 Days Qty: 30 0RF Continued alendronate 70 mg tablet 70 mg PO Q7D Changed amlodipine 2.5 mg tablet 5 mg PO DAILY Qty: 60 0RF Held Combivent Respimat 20-100 mcg/actuation mist 1 puff INHALATION DAILY Hold Instructions: Resume on 04/19/24. Discontinued metformin 500 mg tablet 500 mg PO DAILY atorvastatin 20 mg tablet 20 mg PO DAILY lisinopril 5 mg tablet 5 mg PO DAILY Discharge Orders: Discharge Order (Routine); Ordered 04/05/24 Ordered By: Fabricio Griffiths Referrals: Geetha Antunez PA [Primary Care Provider] - Froylan Dick DO [Physician] - 04/19/24 10:00 am (Patient should follow-up with Dr. Dick or Nuno Dick PA-C in 2 weeks upon discharge) Discharge Diet: Regular Discharge Activity: Limit activity as instructed and Use walker/crutches as instructed Patient Instructions: Hydrocodone/Acetaminophen (By mouth), Enoxaparin (By injection), Acute Wound Care (DC), Opioid Safety, Post Anesthesia Care Activity Restrictions/Additional Instructions: Orthopedic discharge instructions: Patient may weight-bear as tolerated to the operative lower extremity use walker as needed for ambulation. Take DVT prophylaxis (lovenox) as prescribed Take pain medication as prescribed Take antinausea medication as needed Supplement with Citracal vitamin D for bone health and healing Ice as needed for pain and swelling Patient okay to remove Reynold bandage after 3 days from surgery and after that can change or reinforce Silverlon dressings as needed depending on her saturation. Leave Silverlon bandage dressing on for 7 days after that may remove, rinse incision with warm soapy water/shower pat dry keep clean dry and intact and redress with a clean dry dressing. No baths or soap Follow-up in the orthopedic office in 2 weeks from date of surgery Contact the office for any questions or concerns per (fevers, increased drainage or redness around the incision site etc.) Discharge Attestations Time Spent in Discharge Care*: greater than 30 min Specific Discharge Activities: educating patient, discussing with pcp/other providers, discussing with correctional casework specialist/social workers/dc planners, documenting/other paperwork and evaluating patient/reviewing data Status at Discharge: Cognitive status at discharge: cognitively intact , Behavioral status at discharge: cooperative , Functional status at discharge: uses cane/walker , Overall status at discharge: patient is progressing back to baseline Quality Metrics Clinical Quality Measures [ No reported AMI, CVA or VTE this stay] Coding Level of Care Code 95017 Total time (in minutes) for Discharge: 60 Diagnoses Right femoral shaft fracture S72.301A
[2024-04-05 11:29] VITALS: BP 114/71; PULSE 93; RESP 16; TEMP 36.6; O2SAT 92
[2024-04-05 14:18] VITALS: BP 114/71; PULSE 93; RESP 16; TEMP 36.6; O2SAT 93
== END 2024-04-05 14:23 | disposition skilled nursing facility (03) | DRG 482 ==
LOC: ER 12:22 → MEDSURG 12:37
PROVIDERS: Physician Assistant; Student in an Organized Health Care Education/Training Program; Admitting Provider Internal Medicine; Emergency Provider Family Medicine; PCP Physician Assistant; Visit Provider Student in an Organized Health Care Education/Training Program
PROC: 0QSC04Z Reposition Left Lower Femur with Internal Fixation Device, Open Approach (ICD-10-PCS; principal; 2024-04-02 17:15)
DX: S72.401A Unspecified fracture of lower end of right femur, initial encounter for closed fracture (principal); R01.1 Cardiac murmur, unspecified; I10 Essential (primary) hypertension; E11.9 Type 2 diabetes mellitus without complications; J45.909 Unspecified asthma, uncomplicated; W01.0XXA Fall on same level from slipping, tripping and stumbling without subsequent striking against object, initial encounter; Y93.K9 Activity, other involving animal care; Y92.096 Garden or yard of other non-institutional residence as the place of occurrence of the external cause; Z79.84 Long term (current) use of oral hypoglycemic drugs; Z87.891 Personal history of nicotine dependence
CPT/HCPCS: 36415; 36416; 51702; 71045; 73502; 73552; 73562; 73590; 73700; 77001; 80048; 80053; 80061; 81001; 82607; 82746; 82962; 83036; 83540; 83550; 83735; 84439; 84443; 84481; 85025; 86850; 86900; 87426; 93005; 93306; 96372; 96374; 96376; 97116; 97161; 97166; 97530; 99285; C1713; J0131; J0690; J1100; J1650; J1815; J1885; J2270; J2405; J2704; J2710; J3010; J3490; J7030

== ENCOUNTER → 2024-04-19 09:53 | Outpatient (BNVA) | payer MEDICARE, OTHER, SELFPAY | PROVIDERS: PCP Physician Assistant; Visit Provider Physician Assistant | DX: S72.301D Unspecified fracture of shaft of right femur, subsequent encounter for closed fracture with routine healing (principal); X58.XXXD Exposure to other specified factors, subsequent encounter; Z98.890 Other specified postprocedural states | CPT/HCPCS: 73552; 99024 ==

== ENCOUNTER → 2024-06-12 15:20 | Outpatient (BNVA) | payer MEDICARE, OTHER, SELFPAY | PROVIDERS: PCP Physician Assistant; Visit Provider Student in an Organized Health Care Education/Training Program | DX: S72.301D Unspecified fracture of shaft of right femur, subsequent encounter for closed fracture with routine healing (principal); Z98.890 Other specified postprocedural states; X58.XXXD Exposure to other specified factors, subsequent encounter | CPT/HCPCS: 73552; 99213 ==